=== PATIENT | male | born 1960 | race Caucasian/White ===

== ENCOUNTER → 2017-12-31 | Outpatient (REF) | payer OTHER ==
[2017-12-31 13:45] LABS: BASO % 0.4 % (0.0-1.0); EOS # 0.2 10^3/uL (0.0-0.50); EOS % 3.4 % (0.0-3.0); HEMATOCRIT 43.8 % (42.0-52.0); HEMOGLOBIN 14.5 g/dl (13.5-17.5); IMMATURE GRANULOCYTE % 0.7 % (0-3.0); LYMPH % 29.5 % (24.0-44.0); MEAN CORPUSCULAR HEMOGLOBIN 29.2 pg (27.0-33.0); MEAN CORPUSCULAR HGB CONC 33.1 g/dl (32.0-36.5); MEAN CORPUSCULAR VOLUME 88.3 fl (80.0-96.0); MONO # 0.5 10^3/uL (0.0-0.8); MONO % 6.6 % (0.0-5.0); NEUTROPHILS % 59.4 % (36.0-66.0); PLATELET COUNT, AUTOMATED 188 10^3/uL (150-450); RED BLOOD COUNT 4.96 10^6/uL (4.30-6.10); RED CELL DISTRIBUTION WIDTH 12.7 % (11.5-14.5); WHITE BLOOD COUNT 6.8 10^3/uL (4.0-10.0)
[2017-12-31 14:10] LABS: ALBUMIN 4.1 GM/DL (3.2-5.2); ALBUMIN/GLOBULIN RATIO 1.05 (1.00-1.93); ALKALINE PHOSPHATASE 112 U/L (45-117); ALT/SGPT 66 U/L (12-78); ANION GAP 10 MEQ/L (8-16); AST/SGOT 39 U/L (7-37); BILIRUBIN,TOTAL 0.4 MG/DL (0.2-1.0); BLOOD UREA NITROGEN 14 MG/DL (7-18); C REACTIVE PROTEIN QUANTITATIV 1.28 MG/DL (0.00-0.30); CALCIUM LEVEL 9.1 MG/DL (8.5-10.1); CARBON DIOXIDE LEVEL 27 MEQ/L (21-32); CHLORIDE LEVEL 105 MEQ/L (98-107); CHOLESTEROL LEVEL 170 MG/DL (<200); CHOLESTEROL RISK RATIO 7.727 (<5); CPK CREATINE PHOSPHOKINASE 83 U/L (39-308); CREATININE FOR GFR 1.06 MG/DL (0.70-1.30); FREE T4 0.77 NG/DL (0.76-1.46); GLOMERULAR FILTRATION RATE > 60.0 (>56); GLUCOSE, FASTING 89 MG/DL (70-100); HDL CHOLESTEROL 22 MG/DL (>40); NON-HDL-C 148 MG/DL; POTASSIUM SERUM 4.5 MEQ/L (3.5-5.1); PSA SCREENING 1.17 NG/ML (< 4.0); SODIUM LEVEL 142 MEQ/L (136-145); TRIGLYCERIDES LEVEL 480 MG/DL (<150)
[2017-12-31 14:22] LABS: ESTIMATED AVERAGE GLUCOSE 128 MG/DL (60-110); HEMOGLOBIN A1c 6.1 %
== END ==
LOC: M SFHCPLAZ 11:46
DX: I10 Essential (primary) hypertension (principal); E78.00 Pure hypercholesterolemia, unspecified; E66.9 Obesity, unspecified; Z12.5 Encounter for screening for malignant neoplasm of prostate

== ENCOUNTER → 2017-12-31 | Outpatient (CLI) | payer OTHER | LOC: M SMT 12:11 | DX: G89.29 Other chronic pain (principal); M54.5 Low back pain; I10 Essential (primary) hypertension; E78.00 Pure hypercholesterolemia, unspecified; Z12.5 Encounter for screening for malignant neoplasm of prostate; Z12.11 Encounter for screening for malignant neoplasm of colon; R73.01 Impaired fasting glucose; E66.9 Obesity, unspecified; Z79.82 Long term (current) use of aspirin | CPT/HCPCS: 72110; 82550 ==

== ENCOUNTER → 2018-06-03 | Outpatient (CLI) | payer OTHER ==
[2018-06-03 16:55] LABS: ALBUMIN 4.2 GM/DL (3.2-5.2); ALKALINE PHOSPHATASE 109 U/L (45-117); ALT/SGPT 49 U/L (12-78); ANION GAP 8 MEQ/L (8-16); AST/SGOT 23 U/L (7-37); BILIRUBIN,TOTAL 0.4 MG/DL (0.2-1.0); BLOOD UREA NITROGEN 12 MG/DL (7-18); CALCIUM LEVEL 9.3 MG/DL (8.8-10.2); CARBON DIOXIDE LEVEL 26 MEQ/L (21-32); CHLORIDE LEVEL 108 MEQ/L (98-107); CREATININE FOR GFR 1.04 MG/DL (0.70-1.30); GLOMERULAR FILTRATION RATE > 60.0 (>49); GLUCOSE, FASTING 82 MG/DL (70-100); POTASSIUM SERUM 5.2 MEQ/L (3.5-5.1); SODIUM LEVEL 142 MEQ/L (136-145); TOTAL PROTEIN 7.7 GM/DL (6.4-8.2)
[2018-06-03 20:01] LABS: ESTIMATED AVERAGE GLUCOSE 128 MG/DL (60-110); HEMOGLOBIN A1c 6.1 %
== END ==
LOC: M WUC 12:28
DX: R73.01 Impaired fasting glucose (principal); I10 Essential (primary) hypertension
CPT/HCPCS: 80053

== ENCOUNTER → 2018-06-25 | Outpatient (CLI) | payer OTHER | LOC: M RAD 06:34 | DX: M51.27 Other intervertebral disc displacement, lumbosacral region (principal); M54.5 Low back pain | CPT/HCPCS: 72148 ==

== ENCOUNTER → 2018-10-12 | Outpatient (REF) | payer OTHER ==
[2018-10-12 12:06] LABS: BASO % 0.6 % (0.0-1.0); EOS # 0.2 10^3/uL (0.0-0.50); EOS % 2.6 % (0.0-3.0); HEMATOCRIT 44.6 % (42.0-52.0); HEMOGLOBIN 14.3 g/dl (13.5-17.5); LYMPH # 1.6 10^3/uL (1.5-4.5); LYMPH % 26.2 % (24.0-44.0); MEAN CORPUSCULAR HGB CONC 32.1 g/dl (32.0-36.5); MEAN CORPUSCULAR VOLUME 90.5 fl (80.0-96.0); MONO # 0.4 10^3/uL (0.0-0.8); MONO % 6.7 % (0.0-5.0); NEUTROPHILS % 63.6 % (36.0-66.0); PLATELET COUNT, AUTOMATED 201 10^3/uL (150-450); RED BLOOD COUNT 4.93 10^6/uL (4.30-6.10); WHITE BLOOD COUNT 6.3 10^3/uL (4.0-10.0)
[2018-10-12 12:18] LABS: ALBUMIN 3.8 GM/DL (3.2-5.2); ALT/SGPT 43 U/L (12-78); BILIRUBIN,TOTAL 0.7 MG/DL (0.2-1.0); BLOOD UREA NITROGEN 12 MG/DL (7-18); CALCIUM LEVEL 8.7 MG/DL (8.8-10.2); CARBON DIOXIDE LEVEL 29 MEQ/L (21-32); CHLORIDE LEVEL 105 MEQ/L (98-107); CHOLESTEROL LEVEL 157 MG/DL (<200); CHOLESTEROL RISK RATIO 4.757 (<5); CREATININE FOR GFR 1.14 MG/DL (0.70-1.30); GLOMERULAR FILTRATION RATE > 60.0 (>49); GLUCOSE, FASTING 100 MG/DL (70-100); HDL CHOLESTEROL 33 MG/DL (>40); LDL CHOLESTEROL 79 MG/DL (<100); NON-HDL-C 124 MG/DL; POTASSIUM SERUM 4.5 MEQ/L (3.5-5.1); SODIUM LEVEL 139 MEQ/L (136-145); TOTAL PROTEIN 7.5 GM/DL (6.4-8.2); TRIGLYCERIDES LEVEL 225 MG/DL (<150)
[2018-10-12 12:31] LABS: HEMOGLOBIN A1c 6.3 %
== END ==
LOC: M SFHCPLAZ 09:25
PROVIDERS: ATTEND Physician Assistant Medical
DX: R73.01 Impaired fasting glucose (principal); I10 Essential (primary) hypertension; E87.5 Hyperkalemia; Z13.220 Encounter for screening for lipoid disorders; Z23 Encounter for immunization
CPT/HCPCS: 36415; 80053; 80061; 83036; 85025; 90682; G0008; G0463

== ENCOUNTER → 2018-12-08 | Outpatient (CLI) | payer OTHER ==
--- NOTE | 2018-12-14 23:52 | ECWPNPC ---
PATIENT NAME: CHIKIS ZIMMER : 1960 GENDER: MALE VISIT DATE: 12/08/2018 DISCHARGE DATE: 12/08/18 1421 VISIT LOCKED DATE TIME: PHYSICIAN: MATEUS KLEIN RESOURCE: MATEUS KLEIN REASON FOR APPOINTMENT 1. BACK PAIN HISTORY OF PRESENT ILLNESS PAIN SCREENIN58 Y/O MALE REFERRED BY [facility],PRIMARY CARE FOR EVALUATION OF CHRONIC LOW BACK PAIN AND GENERALIZED BODY PAIN.STATES HE WAS INJURED IN A FALL INJURY IN 1979 WHILE IN THE [employer].FELL OFF LADDER 10FT ABOUT 10 YEARS AGO.PAIN HAS PROGRESSIVELY GOTTEN WORSE OVER THE PAST 5 YEARS.PAIN IS AGGREVATED BY PROLONGED SITTING OR WALKING.PAIN MEDICATION IS ONLY MARGINALLY EFFECTIVE.RATING PAIN VAS 3-6/10.DESCRIBES PAIN CONSTANT ,ACHING AND SORE.DENIES BOWEL OR BLADDER INCONTINENCE.NO RECENT FEVER,ILLNESS OR SUDDEN WEIGHT LOSS. PATIENT HAS A COMPLAINT OF ACUTE OR CHRONIC PAIN :YES FALL RISK SCREENING: SCREENING :NO FALLS REPORTED IN THE LAST YEAR CURRENT MEDICATIONS TAKING FOSINOPRIL SODIUM 10 MG TABLET 1 TABLET ORALLY ONCE A DAY TAKING METFORMIN HCL 500 MG TABLET 1 TABLET WITH MEALS ORALLY TWICE A DAY TAKING ATORVASTATIN CALCIUM 40 MG TABLET 1 TABLET ORALLY ONCE A DAY TAKING ACETAMINOPHEN ER 650 MG TABLET EXTENDED RELEASE 2 TABLETS NEEDED ORALLY EVERY 8 HRS TAKING GABAPENTIN 100 MG CAPSULE 2 CAPSULE ORALLY THREE TIMES A DAY TAKING FISH OIL 1200 MG CAPSULE 1 CAPSULE ORALLY ONCE A DAY DISCONTINUED ASPIRIN 81 81 MG TABLET CHEWABLE 1 TABLET ORALLY ONCE A DAY DISCONTINUED BACLOFEN 10 MG TABLET 2 TABLET WITH FOOD OR MILK ORALLY THREE TIMES A DAY DISCONTINUED TRIAMCINOLONE ACETONIDE 55 MCG/ACT AEROSOL 1 SPRAY IN EACH NOSTRIL NASALLY ONCE A DAY MEDICATION LIST REVIEWED AND RECONCILED WITH THE PATIENT PAST MEDICAL HISTORY HTN HYPERLIPIDEMIA IMPAIRED FASTING GLUCOSE DEGENERATIVE DISC DISEASE ALLERGIES MUSHROOMS : LETHARGIC, FAINTS - SIDE EFFECTS LEMON SCENTED RAID SURGICAL HISTORY RIGHT ARM 2008 RIGHT FOOT/RIGHT HEEL 2007 HERNIA REPAIR 1994 COLONOSCOPY NEG. 2013 DENTAL EXTRACTIONS ANGIOGRAM HEART 1997 FAMILY HISTORY FATHER: , DIAGNOSED WITH HYPERTENSION, HEART DISEASE MOTHER: ALIVE, HYPERTENSION SIBLINGS: ALIVE 3 BROTHER(S) , 1 SISTER(S) . 2 BROTHER HAS HEART ATTACK\\\/STROKE\\NNO CHILDREN. SOCIAL HISTORY GENERAL: TOBACCO USE ARE YOU A:FORMER SMOKER HOW LONG HAS IT BEEN SINCE YOU LAST SMOKED?1-5 YEARS LATEX QUESTIONNAIRE LATEX ALLERGY : HAVE YOU EVER DEVELOPED ANY TYPE OF REACTION AFTER HANDLING LATEX PRODUCTS SUCH RUBBER GLOVES, CONDOMS, DIAPHRAGMS, BALLOONS, SOCKS, OR UNDERWEAR?NO LATEX ALLERGY : HAVE YOU EVER DEVELOPED ANY TYPE OF REACTION DURING OR AFTER DENTAL APPOINTMENT, VAGINAL/RECTAL EXAMINATION, SURGICAL PROCEDURE, OR ANY OTHER EXPOSURE?NO LATEX RISK : HAVE YOU EVER HAD ANY DIFFICULTY BREATHING OR HIVES AFTER EATING OR HANDLING ANY FRUITS, OR VEGETABLES; SUCH KIWI, BANANAS, STONE FRUITS, OR CHESTNUTSNO LATEX RISK : DO YOU HAVE A PREVIOUS PERSONAL HISTORY OF MORE THAN NINE SURGERIES, SPINA BIFIDA, OR REPEATED CATHERTIZATIONS? NO LATEX RISK : ARE YOU FREQUENTLY EXPOSED TO LATEX PRODUCTS IN YOUR OCCUPATION?NO DATE ASKED : 12/08/2018 ALCOHOL SCREENING DID YOU HAVE A DRINK CONTAINING ALCOHOL IN THE PAST YEAR?NO POINTS0 INTERPRETATIONNEGATIVE RECREATIONAL DRUG USE DRUG USE?YES PT USES MARIJUANA ABOUT 1-2 TIMES WEEKLY CAFFEINE CAFFEINE USE?YES COFFEE AND SODA SEXUAL HX HAD SEX IN THE LAST 12 MONTHS (VAGINAL, ORAL, OR ANAL)?YES WITHWOMEN ONLY USE PROTECTION?NO PREVENTION STRATEGIES DISCUSSED:OTHER HAVE YOU EVER HAD AN STD?NO HIV / HEP-C SCREENING HIV TEST OFFERED TO PATIENT:YES DATE OFFERED:12/31/2017 TEST ACCEPTED:NO REASON:PATIENT DECLINED BROCHURE PROVIDED TO PATIENTYES HEP-C TEST OFFERED TO PATIENT:YES DATE OFFERED:12/31/2017 TEST ACCEPTED:NO REASON:PATIENT DECLINED YAZIDI YAZIDI NO SPIRITISM BELIEFS THAT WOULD IMPACT HEALTH CARE. LANGUAGE LANGUAGES SPOKEN:SWEDISH EDUCATION LEVEL OF EDUCATION:FINISHED HIGH SCHOOL GED 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 VISION IMPAIRED?YES :CORRECTIVE LENSES READING GLASSES COGNITIVELY IMPAIRED?NO READINESS TO LEARN?YES LEARNING PREFERENCES?YES :HANDOUTS LEARNING CAPABILITIES PRESENT?YES EMOTIONAL BARRIERS?NO SPECIAL DEVICES?NO OPERATIONS PROFESSIONAL NEEDED?NO OCCUPATION: DISABLED . MARITAL STATUS: . PAIN CLINIC PFS, CLERGY, PUBLIC HEALTH REFERRALS HAS THE PATIENT BEEN EDUCATED REGARDING HIS/HER PLAN OF CARE?YES HAS THE PATIENT BEEN EDUCATED REGARDING PAIN, THE RISK FOR PAIN, THE IMPORTANCE OF EFFECTIVE PAIN MANAGEMENT, AND THE PAIN ASSESSMENT PROCESS?YES ADVANCE DIRECTIVE ADVANCE DIRECTIVE DISCUSSED WITH PATIENT:YES PT STATES HCP IS GÓMEZ ZIMMER, REVIEWED WITH PT 12/08/18 1315 BV. HOSPITALIZATION/MAJOR DIAGNOSTIC PROCEDURE SURGERY RELATED 2007 REVIEW OF SYSTEMS REVIEWED BY: PROVIDER: MATEUS HALE . CONSTITUTIONAL: ANY CHANGE IN YOUR MEDICAL CONDITION? NO . CHILLS NO . FEVER NO . INFECTION: DO YOU HAVE NEW INFECTIONS? NO . DO YOU HAVE HISTORY OF MRSA? NO . MUSCULOSKELETAL: ANY NEW PATTERNS OF PAIN OR NUMBNESS? NO . SYTEMIC LUPUS NO . GASTROENTEROLOGY: ANY NEW CHANGE IN BOWEL CONTROL? NO . BARRETTS ESOPHAGUS NO . CIRRHOSIS NO . HEPATITIS NO . LIVER FAILURE NO . ACID REFLUX NO . UNEXPLAINED WEIGHT LOSS NO . GENITOURINARY: ANY NEW CHANGE IN BLADDER CONTROL? NO . IS THERE A CHANCE YOU COULD BE ? NO . HEMATOLOGY/LYMPH: DO YOU TAKE ANY BLOOD THINNERS? (FOR EXAMPLE- COUMADIN, PLAVIX, AGGRENOX, PLATEL, PRADAXA, OR XARELTO) NO . WHEN WAS YOUR LAST DOSE? DATE: TIME: . LOW PLATELET COUNT NO . SICKLE CELL DISEASE NO . VON WILLIEBRANDS NO . FACTOR V LEIDEN NO . THALLASEMIA NO . ANEMIA NO . EASY BRUISING NO . NEUROLOGY: HAVE YOU FALLEN IN THE PAST 12 MONTHS? NO . ANY NEW EXTREMITY NUMBNESS OR WEAKNESS? NO . HEAD INJURY NO . DEMENTIA NO . CEREBRAL PALSY NO . MULTIPLE SCLEROSIS NO . DIZZINESS NO, INTERMITTENTLASTING FOR MINUTES, , LIGHTHEADED SENSATION . HEADACHE NO . STROKES NO . VERTIGO NO . CARDIOLOGY: DO YOU HAVE A PACEMAKER OR DEFIBRILLATOR? NO . ANGINA NO . HEART ATTACK NO . HEART SURGERY NO . CONGESTIVE HEART FAILURE/FLUID OVERLOAD NO . CHEST PAIN STATES HE OCCASSIONALY GETS MIDSTERNAL DULL CHEST PAIN EVERY FEW MONTHS THAT LASTS FOR A DAY OR TWO . HIGH BLOOD PRESSURE NO . IRREGULAR HEART BEAT NO . RESPIRATORY: HAVE YOU BEEN SICK IN THE PAST WEEK? NO . FEVER NO . FLU LIKE SYMPTOMS? NO . CPAP NO . BYPAP NO . ASTHMA NO . EMPHYSEMA NO . CHRONIC LUNG DISEASES NO . SHORTNESS OF BREATH ON EXERTION NO . COUGH NO . SNORING YES . INTEGUMENTARY: DO YOU HAVE ANY RASHES OR OPEN SORES? NO . ALLERGIC/IMMUNO: ARE YOU ALLERGIC TO IV DYE? NO . ANY NEW ALLERGIES? NO . PSYCHIATRIC: DO YOU HAVE THOUGHTS OF HURTING YOURSELF OR SOMEONE ELSE? NO . ARE YOU ABUSED, NEGLECTED, OR IN AN UNSAFE ENVIRONMENT? NO . ENDOCRINOLOGY: ARE YOU DIABETIC? YES, ON MEDICATION . THYROID DISORDER NO . OTHER: DO YOU NEED ANY PRESCRIPTIONS? NO . IF YES, PLEASE LIST: ____ . ANY NEW PROBLEMS WITH YOUR MEDICATIONS? NO . WHEN DID YOU LAST EAT? ____ . WHEN DID YOU LAST DRINK? ____ . WHAT DID YOU LAST DRINK? ____ . NAME OF PERSON DRIVING YOU HOME? ____ . DO YOU HAVE ANY OTHER QUESTIONS OR CONCERNS NO . VITAL SIGNS WT 245.2 LBS, HT 71 IN, BMI 34.19 INDEX, BP 160/90 MM HG, HR 80 /MIN, RR 18 /MIN, TEMP 97.2 F, OXYGEN SAT % 94%, SAFE IN ENV? (Y/N) YES, REVIEWED BY: SIRENA. EXAMINATION GENERAL EXAMINATION: GENERAL APPEARANCE: AWAKE,ALERT ,PLEAASANT . PSYCH AFFECT NORMAL . NECK: TRACHEA MIDLINE. NO CERVICAL OR SUPRACLAVICULAR LYMPHADENOPATHY NOTED. LUNGS: LUNG FULTON ARE CLEAR TO AUSCULTATION BILATERALLY. GOOD MOVEMENT OF AIR . HEART: S1, S2 IN A REGULAR RATE AND RHYTHM. NO SIGNIFICANT MURMURS, RUBS OR GALLOPS NOTED . ABDOMEN: SOFT/NONTENDER/PROTUBERANT/OBESE. MUSCULOSKELETAL:MUSCLE STRENGTH TESTING 5/5 BILATERAL UPPER/LOWER EXTREMITIES. LUMBAR SACRAL SPINEPALPATION: POSITIVE FOR PAIN OVER L/S SPINE. SPECIFIC POINT TENDERNESS OVER BILAT. SIJ L>R.POSITIVE ART TESTING BILAT. LOWER EXTREMITIES. CERVICALPOSITIVE FOR PAIN WITH PALPATION OF CERVICAL SPINE. POSITIVE FOR PAIN WITH PALPATION OF CERVICAL PARASPINALS. NEGATIVE FOR PAIN WITH PALPATION OF TRAPEZIUS BILAT. SKIN: NO RASH OR SKIN LESIONS. NEUROLOGIC EXAM: CN'S NORMAL TESTED , DTRS 1-2+ IN ALL 4 EXTREMITIES. DIAGNOSTIC TESTS REVIEWEDMRI L/S SPINE-06/25/18 . ASSESSMENTS SACROILIITIS - M46.1 (PRIMARY) TREATMENT SACROILIITIS NOTES: BILAT. SIJ. PROCEDURE CODES FA211 ESTABILISHED PATIENT [facility]AC[facility] CHARGE DISPOSITION & COMMUNICATION FOLLOW UP POST (REASON: BILAT. SIJ) ELECTRONICALLY SIGNED BY ALEXIA CARRANZA ON 12/14/2018 AT 04:43 PM EDT DISCLAIMER : THIS IS A VISIT SUMMARY EXTRACTED FROM THE [employer] CHART. IT IS NOT A COPY OF THE [employer] PROGRESS NOTE. DEEPTHID
== END ==
LOC: M PAIN 13:00
PROVIDERS: ATTEND Nurse Practitioner Family
DX: M46.1 Sacroiliitis, not elsewhere classified (principal); G89.29 Other chronic pain; I10 Essential (primary) hypertension; E78.5 Hyperlipidemia, unspecified; R73.01 Impaired fasting glucose; Z87.891 Personal history of nicotine dependence; Z91.018 Allergy to other foods; Z91.048 Other nonmedicinal substance allergy status; Z79.84 Long term (current) use of oral hypoglycemic drugs; Z79.899 Other long term (current) drug therapy

== ENCOUNTER → 2019-01-07 | Outpatient (CLI) | payer OTHER ==
--- NOTE | 2019-01-23 23:15 | ECWPNPC ---
PATIENT NAME: CHIKIS ZIMMER : 1960 GENDER: MALE VISIT DATE: 01/07/2019 DISCHARGE DATE: 01/07/19 1352 VISIT LOCKED DATE TIME: PHYSICIAN: HELEN CASSIDY MD RESOURCE: HELEN CASSIDY MD REASON FOR APPOINTMENT 1. PER DR Pepe/LBP HISTORY OF PRESENT ILLNESS HISTORY OF PRESENT ILLNESS: PAIN THE PATIENT DESCRIBES THE PAIN... 58 YEAR OLD MALE PATIENT WITH A HISTORY OF CHRONIC LOW BACK PAIN. THE PATIENT DESCRIBES THE PAIN STABBING, SHOOTING, SHARP, AND CONTINUOUS WITH A PAIN SCORE OF 4-8/10 DEPENDING ON PHYSICAL ACTIVITY. THE PATIENT SAYS THE PAIN IS ALL AROUND IN HIS LOWER BACK BUT HE EXPERIENCES MORE PAIN ON HIS LEFT SIDE. THE PATIENT SAYS HE HAS BEEN SUFFERING FROM THIS PAIN FOR MANY YEARS. PATIENT DENIES UNEXPLAINABLE WEIGHT LOSS, FEVER, CHILLS, NEW CHANGES ON HIS URINARY OR BOWEL CONTROL. FALL RISK SCREENING: SCREENING :NO FALLS REPORTED IN THE LAST YEAR CURRENT MEDICATIONS TAKING FOSINOPRIL SODIUM 10 MG TABLET 1 TABLET ORALLY ONCE A DAY TAKING METFORMIN HCL 500 MG TABLET 1 TABLET WITH MEALS ORALLY TWICE A DAY TAKING ATORVASTATIN CALCIUM 40 MG TABLET 1 TABLET ORALLY ONCE A DAY TAKING ACETAMINOPHEN ER 650 MG TABLET EXTENDED RELEASE 2 TABLETS NEEDED ORALLY EVERY 8 HRS TAKING GABAPENTIN 100 MG CAPSULE 2 CAPSULE ORALLY THREE TIMES A DAY TAKING FISH OIL 1200 MG CAPSULE 1 CAPSULE ORALLY ONCE A DAY MEDICATION LIST REVIEWED AND RECONCILED WITH THE PATIENT PAST MEDICAL HISTORY HTN HYPERLIPIDEMIA IMPAIRED FASTING GLUCOSE DEGENERATIVE DISC DISEASE ALLERGIES MUSHROOMS : LETHARGIC, FAINTS - SIDE EFFECTS LEMON SCENTED RAID SURGICAL HISTORY RIGHT ARM 2008 RIGHT FOOT/RIGHT HEEL 2007 HERNIA REPAIR 1994 COLONOSCOPY NEG. 2013 DENTAL EXTRACTIONS ANGIOGRAM HEART 1997 FAMILY HISTORY FATHER: , DIAGNOSED WITH HYPERTENSION, HEART DISEASE MOTHER: ALIVE, HYPERTENSION SIBLINGS: ALIVE 3 BROTHER(S) , 1 SISTER(S) . 2 BROTHER HAS HEART ATTACK\\\/STROKE\\NNO CHILDREN. SOCIAL HISTORY GENERAL: TOBACCO USE ARE YOU A:FORMER SMOKER HOW LONG HAS IT BEEN SINCE YOU LAST SMOKED?1-5 YEARS HIV / HEP-C SCREENING HIV TEST OFFERED TO PATIENT:YES DATE OFFERED:12/31/2017 TEST ACCEPTED:NO REASON:PATIENT DECLINED BROCHURE PROVIDED TO PATIENTYES HEP-C TEST OFFERED TO PATIENT:YES DATE OFFERED:12/31/2017 TEST ACCEPTED:NO REASON:PATIENT DECLINED EDUCATION LEVEL OF EDUCATION:FINISHED HIGH SCHOOL GED LANGUAGE LANGUAGES SPOKEN:HEBREW RECREATIONAL DRUG USE DRUG USE?YES PT USES MARIJUANA ABOUT 1-2 TIMES WEEKLY 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 VISION IMPAIRED?YES :CORRECTIVE LENSES READING GLASSES COGNITIVELY IMPAIRED?NO READINESS TO LEARN?YES LEARNING PREFERENCES?YES :HANDOUTS LEARNING CAPABILITIES PRESENT?YES EMOTIONAL BARRIERS?NO SPECIAL DEVICES?NO INSOLE BEVELER NEEDED?NO PAIN CLINIC PFS, CLERGY, PUBLIC HEALTH REFERRALS HAS THE PATIENT BEEN EDUCATED REGARDING HIS/HER PLAN OF CARE?YES HAS THE PATIENT BEEN EDUCATED REGARDING PAIN, THE RISK FOR PAIN, THE IMPORTANCE OF EFFECTIVE PAIN MANAGEMENT, AND THE PAIN ASSESSMENT PROCESS?YES LATEX QUESTIONNAIRE LATEX ALLERGY : HAVE YOU EVER DEVELOPED ANY TYPE OF REACTION AFTER HANDLING LATEX PRODUCTS SUCH RUBBER GLOVES, CONDOMS, DIAPHRAGMS, BALLOONS, SOCKS, OR UNDERWEAR?NO LATEX ALLERGY : HAVE YOU EVER DEVELOPED ANY TYPE OF REACTION DURING OR AFTER DENTAL APPOINTMENT, VAGINAL/RECTAL EXAMINATION, SURGICAL PROCEDURE, OR ANY OTHER EXPOSURE?NO LATEX RISK : HAVE YOU EVER HAD ANY DIFFICULTY BREATHING OR HIVES AFTER EATING OR HANDLING ANY FRUITS, OR VEGETABLES; SUCH KIWI, BANANAS, STONE FRUITS, OR CHESTNUTSNO LATEX RISK : DO YOU HAVE A PREVIOUS PERSONAL HISTORY OF MORE THAN NINE SURGERIES, SPINA BIFIDA, OR REPEATED CATHERTIZATIONS? NO LATEX RISK : ARE YOU FREQUENTLY EXPOSED TO LATEX PRODUCTS IN YOUR OCCUPATION?NO DATE ASKED : 12/08/2018 CAFFEINE CAFFEINE USE?YES COFFEE AND SODA ADVANCE DIRECTIVE ADVANCE DIRECTIVE DISCUSSED WITH PATIENT:YES PT STATES HCP IS GÓMEZ ZIMMER, RESTORATIONISM RESTORATIONISM NO MANDAEN BELIEFS THAT WOULD IMPACT HEALTH CARE. MARITAL STATUS: . ALCOHOL SCREENING DID YOU HAVE A DRINK CONTAINING ALCOHOL IN THE PAST YEAR?NO POINTS0 INTERPRETATIONNEGATIVE OCCUPATION: DISABLED. SEXUAL HX HAD SEX IN THE LAST 12 MONTHS (VAGINAL, ORAL, OR ANAL)?YES WITHWOMEN ONLY USE PROTECTION?NO PREVENTION STRATEGIES DISCUSSED:OTHER HAVE YOU EVER HAD AN STD?NO REVIEWED WITH PT 12/08/18 1315 BV. HOSPITALIZATION/MAJOR DIAGNOSTIC PROCEDURE SURGERY RELATED 2007 REVIEW OF SYSTEMS REVIEWED BY: PROVIDER: HELEN CASSIDY MD . CONSTITUTIONAL: ANY CHANGE IN YOUR MEDICAL CONDITION? NO . CHILLS NO . FEVER NO . INFECTION: DO YOU HAVE NEW INFECTIONS? NO . DO YOU HAVE HISTORY OF MRSA? NO . MUSCULOSKELETAL: ANY NEW PATTERNS OF PAIN OR NUMBNESS? NO . GASTROENTEROLOGY: ANY NEW CHANGE IN BOWEL CONTROL? NO . GENITOURINARY: ANY NEW CHANGE IN BLADDER CONTROL? NO . IS THERE A CHANCE YOU COULD BE ? NO . HEMATOLOGY/LYMPH: DO YOU TAKE ANY BLOOD THINNERS? (FOR EXAMPLE- COUMADIN, PLAVIX, AGGRENOX, PLATEL, PRADAXA, OR XARELTO) NO . WHEN WAS YOUR LAST DOSE? DATE: TIME: . NEUROLOGY: HAVE YOU FALLEN IN THE PAST 12 MONTHS? NO . ANY NEW EXTREMITY NUMBNESS OR WEAKNESS? NO . CARDIOLOGY: DO YOU HAVE A PACEMAKER OR DEFIBRILLATOR? NO . RESPIRATORY: HAVE YOU BEEN SICK IN THE PAST WEEK? NO . FEVER NO . FLU LIKE SYMPTOMS? NO . COUGH NO . INTEGUMENTARY: DO YOU HAVE ANY RASHES OR OPEN SORES? NO . ALLERGIC/IMMUNO: ARE YOU ALLERGIC TO IV DYE? NO . ANY NEW ALLERGIES? NO . PSYCHIATRIC: DO YOU HAVE THOUGHTS OF HURTING YOURSELF OR SOMEONE ELSE? NO . ARE YOU ABUSED, NEGLECTED, OR IN AN UNSAFE ENVIRONMENT? NO . ENDOCRINOLOGY: ARE YOU DIABETIC? NO . OTHER: DO YOU NEED ANY PRESCRIPTIONS? NO . IF YES, PLEASE LIST: ____ . ANY NEW PROBLEMS WITH YOUR MEDICATIONS? NO . WHEN DID YOU LAST EAT? ____ . WHEN DID YOU LAST DRINK? ____ . WHAT DID YOU LAST DRINK? ____ . NAME OF PERSON DRIVING YOU HOME? ____ . DO YOU HAVE ANY OTHER QUESTIONS OR CONCERNS NO . EXAMINATION GENERAL EXAMINATION: PATIENT IS ALERT O X 3 AND COOPERATIVE. PRESENCE OF BANDS OF TISSUE AND TRIGGER POINTS WITH RESTRICTION OF MOVEMENT OF THE LOW BACK. TENDERNESS OVER THE LUMBAR FACET JOINTS. MRI OF THE LUMBAR SPINE DONE ON 06/25/2018 SHOWS FACET ARTHROPATHY CHANGES. 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 ZIMMER'S PAIN MANAGEMENT CASE. DUE TO THE TRIGGER POINTS, BANDS OF TISSUE, AND RESTRICTION OF MOVEMENT, I WOULD LIKE TO MOVE FORWARD WITH A TRIGGER POINT INJECTION AT THIS TIME. WE DISCUSSED THE BENEFITS, RISKS, AND ALTERNATIVES OF THE INJECTION AND THE PATIENT WOULD LIKE TO PROCEED. THE PATIENT WILL FOLLOW UP IN SEVERAL WEEKS AFTER THE INJECTION. INSTRUCTIONS WERE GIVEN, QUESTIONS WERE ANSWERED, PATIENT REPORTS UNDERSTANDING AND AGREES WITH THE PLAN. I, LISBETH CLAUDIO, DOCUMENTED THE ABOVE INFORMATION ACTING A SCRIBE FOR DR. CASSIDY. I HAVE REVIEWED THE ABOVE DOCUMENT, WRITTEN BY LISBETH SMITHIBBella AND I VERIFY THAT IT IS ACCURATE. . OTHERS NOTES: TRIGGER POINT INJECTION: YOUR EXPERIENCE MATERIAL WAS PRINTED,TRIGGER POINT INJECTION MATERIAL WAS PRINTED. PREVENTIVE MEDICINE PAIN CLINIC TEACHING: PROCEDURE TEACHING PRINTED AND REVIEWED INFORMATION ON TRIGGER POINT INJECTION PROCEDURE WITH PATIENT. ALSO REVIEWED PRE-PROCEDURE INSTRUCTIONS. PATIENT VERBALIZED AN UNDERSTANDING. NATHALY HDEZ 01/07/2019 1:53:20 PM > . PROCEDURE CODES FA211 ESTABILISHED PATIENT [facility] FACILITY CHARGE [id number] CURRENT MEDS W/DOSAGES DOCUMENTED G8730 PAIN ASSESS POS TOOL F/U PLAN DOC DISPOSITION & COMMUNICATION FOLLOW UP 3 WEEKS ELECTRONICALLY SIGNED BY HELEN CASSIDY MD, MD ON 01/23/2019 AT 04:51 PM EDT DISCLAIMER : THIS IS A VISIT SUMMARY EXTRACTED FROM THE [employer] CHART. IT IS NOT A COPY OF THE [employer] PROGRESS NOTE. MAMI
== END ==
LOC: M PAIN 11:00
PROVIDERS: ATTEND Anesthesiology
DX: M79.18 Myalgia, other site (principal); M54.5 Low back pain; G89.29 Other chronic pain; M47.816 Spondylosis without myelopathy or radiculopathy, lumbar region; M47.817 Spondylosis without myelopathy or radiculopathy, lumbosacral region; I10 Essential (primary) hypertension; E78.5 Hyperlipidemia, unspecified; R73.01 Impaired fasting glucose; Z87.891 Personal history of nicotine dependence; Z91.018 Allergy to other foods; Z91.048 Other nonmedicinal substance allergy status; Z79.84 Long term (current) use of oral hypoglycemic drugs; Z79.899 Other long term (current) drug therapy

== ENCOUNTER → 2019-01-07 | Outpatient (CLI) | payer OTHER | LOC: M PAIN 11:00 | PROVIDERS: ATTEND Anesthesiology | DX: M46.1 Sacroiliitis, not elsewhere classified (principal); Z53.29 Procedure and treatment not carried out because of patient's decision for other reasons ==

== ENCOUNTER → 2019-01-11 | Outpatient (REF) | payer OTHER ==
[2019-01-11 12:16] LABS: BASO % 0.5 % (0.0-1.0); EOS # 0.2 10^3/uL (0.0-0.50); EOS % 2.8 % (0.0-3.0); HEMATOCRIT 42.9 % (42.0-52.0); HEMOGLOBIN 13.9 g/dl (13.5-17.5); LYMPH # 1.9 10^3/uL (1.5-4.5); LYMPH % 30.6 % (24.0-44.0); MEAN CORPUSCULAR HEMOGLOBIN 28.7 pg (27.0-33.0); MEAN CORPUSCULAR HGB CONC 32.4 g/dl (32.0-36.5); MEAN CORPUSCULAR VOLUME 88.6 fl (80.0-96.0); MONO # 0.4 10^3/uL (0.0-0.8); NEUTROPHILS # 3.6 10^3/uL (1.8-7.7); NEUTROPHILS % 58.6 % (36.0-66.0); PLATELET COUNT, AUTOMATED 208 10^3/uL (150-450); RED BLOOD COUNT 4.84 10^6/uL (4.30-6.10); WHITE BLOOD COUNT 6.1 10^3/uL (4.0-10.0)
[2019-01-11 12:44] LABS: HEMOGLOBIN A1c 6.5 %
[2019-01-11 12:54] LABS: ALBUMIN 3.6 GM/DL (3.2-5.2); ALT/SGPT 58 U/L (12-78); BILIRUBIN,TOTAL 0.3 MG/DL (0.2-1.0); BLOOD UREA NITROGEN 10 MG/DL (7-18); CALCIUM LEVEL 8.8 MG/DL (8.8-10.2); CARBON DIOXIDE LEVEL 27 MEQ/L (21-32); CHLORIDE LEVEL 106 MEQ/L (98-107); CREATININE FOR GFR 1.09 MG/DL (0.70-1.30); GLOMERULAR FILTRATION RATE > 60.0 (>49); GLUCOSE, FASTING 105 MG/DL (70-100); POTASSIUM SERUM 4.4 MEQ/L (3.5-5.1); SODIUM LEVEL 141 MEQ/L (136-145); TOTAL PROTEIN 7.5 GM/DL (6.4-8.2)
== END ==
LOC: M SFHCPLAZ 10:16
PROVIDERS: ATTEND Physician Assistant Medical
DX: R73.01 Impaired fasting glucose (principal); E87.5 Hyperkalemia; I10 Essential (primary) hypertension
CPT/HCPCS: 36415; 80053; 83036; 85025; G0463

== ENCOUNTER → 2019-03-29 | Outpatient (CLI) | payer OTHER ==
--- NOTE | 2019-04-07 01:08 | ECWPNPC ---
PATIENT NAME: CHIKIS ZIMMER : 1960 GENDER: MALE VISIT DATE: 03/29/2019 DISCHARGE DATE: 03/29/19 1525 VISIT LOCKED DATE TIME: PHYSICIAN: HELEN CASSIDY MD RESOURCE: HELEN CASSIDY MD REASON FOR APPOINTMENT 1. BACK PAIN HISTORY OF PRESENT ILLNESS HISTORY OF PRESENT ILLNESS: PAIN THE PATIENT DESCRIBES THE PAIN... 59 YEAR OLD MALE PATIENT WITH A HISTORY OF CHRONIC LOW BACK PAIN THE PATIENT DESCRIBES THE PAIN ACHING AND CONTINUOUS WITH A PAIN SCORE OF 2-7/10 DEPENDING ON PHYSICAL ACTIVITY. THE PATIENT RECEIVED A TRIGGER POINT INJECTION ON 02/04/2019 AND REPORTS DOING WELL. THE PATIENT SAYS THAT HE NOW HAS PAIN IN THE RIGHT THORACIC AREA. PATIENT DENIES UNEXPLAINABLE WEIGHT LOSS, FEVER, CHILLS, NEW CHANGES ON HIS URINARY OR BOWEL CONTROL. FALL RISK SCREENING: SCREENING :NO FALLS REPORTED IN THE LAST YEAR CURRENT MEDICATIONS TAKING ATORVASTATIN CALCIUM 40 MG TABLET 1 TABLET ORALLY ONCE A DAY, NOTES: 02-03 TAKING FISH OIL 1200 MG CAPSULE 1 CAPSULE ORALLY ONCE A DAY, NOTES: 02-04 TAKING METFORMIN HCL 500 MG TABLET 1 TABLET WITH MEALS ORALLY TWICE A DAY, NOTES: 02-04 TAKING FOSINOPRIL SODIUM 10 MG TABLET 1 TABLET ORALLY ONCE A DAY, NOTES: 02-03 TAKING BACLOFEN 10 MG TABLET 2 TABLET WITH FOOD OR MILK ORALLY THREE TIMES A DAY, NOTES: 02-03 TAKING ACETAMINOPHEN ER 650 MG TABLET EXTENDED RELEASE 2 TABLETS NEEDED ORALLY EVERY 8 HRS, NOTES: 02-03 TAKING GABAPENTIN 100 MG CAPSULE 1 CAPSULE ORALLY THREE TIMES A DAY, NOTES: 02-03 NOT-TAKING TRIAMCINOLONE ACETONIDE 55 MCG/ACT AEROSOL 1 SPRAY IN EACH NOSTRIL NASALLY ONCE A DAY MEDICATION LIST REVIEWED AND RECONCILED WITH THE PATIENT PAST MEDICAL HISTORY HTN HYPERLIPIDEMIA IMPAIRED FASTING GLUCOSE DEGENERATIVE DISC DISEASE ALLERGIES MUSHROOMS : LETHARGIC, FAINTS - SIDE EFFECTS LEMON SCENTED RAID SURGICAL HISTORY RIGHT ARM 2007 RIGHT FOOT/RIGHT HEEL 2007 HERNIA REPAIR 1994 COLONOSCOPY NEG. 2013 DENTAL EXTRACTIONS ANGIOGRAM HEART 1997 FAMILY HISTORY FATHER: , DIAGNOSED WITH HYPERTENSION, HEART DISEASE MOTHER: ALIVE, HYPERTENSION SIBLINGS: ALIVE 3 BROTHER(S) , 1 SISTER(S) . 2 BROTHER HAS HEART ATTACK\\\/STROKE\\NNO CHILDREN. SOCIAL HISTORY GENERAL: TOBACCO USE ARE YOU A:FORMER SMOKER HOW LONG HAS IT BEEN SINCE YOU LAST SMOKED?1-5 YEARS HIV / HEP-C SCREENING HIV TEST OFFERED TO PATIENT:YES DATE OFFERED:12/31/2017 TEST ACCEPTED:NO REASON:PATIENT DECLINED BROCHURE PROVIDED TO PATIENTYES HEP-C TEST OFFERED TO PATIENT:YES DATE OFFERED:12/31/2017 TEST ACCEPTED:NO REASON:PATIENT DECLINED EDUCATION LEVEL OF EDUCATION:FINISHED HIGH SCHOOL GED LANGUAGE LANGUAGES SPOKEN:YORUBA RECREATIONAL DRUG USE DRUG USE?YES PT USES MARIJUANA ABOUT 1-2 TIMES WEEKLY 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 VISION IMPAIRED?YES :CORRECTIVE LENSES READING GLASSES COGNITIVELY IMPAIRED?NO READINESS TO LEARN?YES LEARNING PREFERENCES?YES :HANDOUTS LEARNING CAPABILITIES PRESENT?YES EMOTIONAL BARRIERS?NO SPECIAL DEVICES?NO BALL POINT SPLITTER NEEDED?NO PAIN CLINIC PFS, CLERGY, PUBLIC HEALTH REFERRALS HAS THE PATIENT BEEN EDUCATED REGARDING HIS/HER PLAN OF CARE?YES HAS THE PATIENT BEEN EDUCATED REGARDING PAIN, THE RISK FOR PAIN, THE IMPORTANCE OF EFFECTIVE PAIN MANAGEMENT, AND THE PAIN ASSESSMENT PROCESS?YES LATEX QUESTIONNAIRE LATEX ALLERGY : HAVE YOU EVER DEVELOPED ANY TYPE OF REACTION AFTER HANDLING LATEX PRODUCTS SUCH RUBBER GLOVES, CONDOMS, DIAPHRAGMS, BALLOONS, SOCKS, OR UNDERWEAR?NO LATEX ALLERGY : HAVE YOU EVER DEVELOPED ANY TYPE OF REACTION DURING OR AFTER DENTAL APPOINTMENT, VAGINAL/RECTAL EXAMINATION, SURGICAL PROCEDURE, OR ANY OTHER EXPOSURE?NO LATEX RISK : HAVE YOU EVER HAD ANY DIFFICULTY BREATHING OR HIVES AFTER EATING OR HANDLING ANY FRUITS, OR VEGETABLES; SUCH KIWI, BANANAS, STONE FRUITS, OR CHESTNUTSNO LATEX RISK : DO YOU HAVE A PREVIOUS PERSONAL HISTORY OF MORE THAN NINE SURGERIES, SPINA BIFIDA, OR REPEATED CATHERIZATIONS? NO LATEX RISK : ARE YOU FREQUENTLY EXPOSED TO LATEX PRODUCTS IN YOUR OCCUPATION?NO DATE ASKED : 12/08/2018 CAFFEINE CAFFEINE USE?YES COFFEE AND SODA ADVANCE DIRECTIVE ADVANCE DIRECTIVE DISCUSSED WITH PATIENT:YES PT STATES HCP IS GÓMEZ ZIMMER, MUSLIM MUSLIM NO LATTER-DAY BELIEFS THAT WOULD IMPACT HEALTH CARE. MARITAL STATUS: . ALCOHOL SCREENING DID YOU HAVE A DRINK CONTAINING ALCOHOL IN THE PAST YEAR?NO POINTS0 INTERPRETATIONNEGATIVE OCCUPATION: DISABLED. SEXUAL HX HAD SEX IN THE LAST 12 MONTHS (VAGINAL, ORAL, OR ANAL)?YES WITHWOMEN ONLY USE PROTECTION?NO PREVENTION STRATEGIES DISCUSSED:OTHER HAVE YOU EVER HAD AN STD?NO REVIEWED WITH PT 12/08/18 1315 BVREVIEWED WITH PT 02/04/19 0922 NLJREVIEWED WITH PT 03/29/19 NLJ. HOSPITALIZATION/MAJOR DIAGNOSTIC PROCEDURE SURGERY RELATED 2007 REVIEW OF SYSTEMS REVIEWED BY: PROVIDER: HELEN CASSIDY MD . CONSTITUTIONAL: ANY CHANGE IN YOUR MEDICAL CONDITION? NO . CHILLS NO . FEVER NO . INFECTION: DO YOU HAVE NEW INFECTIONS? NO . DO YOU HAVE HISTORY OF MRSA? NO . MUSCULOSKELETAL: ANY NEW PATTERNS OF PAIN OR NUMBNESS? YES- RIGHT SIDE OF BACK PAIN, AT SHOULDER BLADES AND RIBS HAS STARTED . GASTROENTEROLOGY: ANY NEW CHANGE IN BOWEL CONTROL? NO . GENITOURINARY: ANY NEW CHANGE IN BLADDER CONTROL? NO . IS THERE A CHANCE YOU COULD BE ? NO . HEMATOLOGY/LYMPH: DO YOU TAKE ANY BLOOD THINNERS? (FOR EXAMPLE- COUMADIN, PLAVIX, AGGRENOX, PLATEL, PRADAXA, OR XARELTO) NO . WHEN WAS YOUR LAST DOSE? DATE: TIME: . NEUROLOGY: HAVE YOU FALLEN IN THE PAST 12 MONTHS? NO . ANY NEW EXTREMITY NUMBNESS OR WEAKNESS? NO . CARDIOLOGY: DO YOU HAVE A PACEMAKER OR DEFIBRILLATOR? NO . RESPIRATORY: HAVE YOU BEEN SICK IN THE PAST WEEK? NO . FEVER NO . FLU LIKE SYMPTOMS? NO . COUGH NO . INTEGUMENTARY: DO YOU HAVE ANY RASHES OR OPEN SORES? NO . ALLERGIC/IMMUNO: ARE YOU ALLERGIC TO IV DYE? NO . ANY NEW ALLERGIES? NO . PSYCHIATRIC: DO YOU HAVE THOUGHTS OF HURTING YOURSELF OR SOMEONE ELSE? NO . ARE YOU ABUSED, NEGLECTED, OR IN AN UNSAFE ENVIRONMENT? NO . ENDOCRINOLOGY: ARE YOU DIABETIC? NO . OTHER: DO YOU NEED ANY PRESCRIPTIONS? NO . IF YES, PLEASE LIST: ____ . ANY NEW PROBLEMS WITH YOUR MEDICATIONS? NO . WHEN DID YOU LAST EAT? ____ . WHEN DID YOU LAST DRINK? ____ . WHAT DID YOU LAST DRINK? ____ . NAME OF PERSON DRIVING YOU HOME? ____ . DO YOU HAVE ANY OTHER QUESTIONS OR CONCERNS YES- RIGHT SIDED BACK PAIN AT SHOULDER BLADES AND RIBSSTATES TRIGGER POINTS WORKED WELL IN LOWER BACK, STATES HE FEELS PAIN IS 60-70 % BETTER IN LUMBAR BACK AFTER INJECTIONS, YES- WONDERING ABOUT POSSIBLE INJECTIONS IN RIGHT SIDE OF BACK . VITAL SIGNS WT 225.8 LBS, HT 71 IN, BMI 31.49 INDEX, BP 126/81 MM HG, HR 85 /MIN, RR 18 /MIN, TEMP 97.0 F, OXYGEN SAT % 94%, SAFE IN ENV? (Y/N) YES, NA INITIALS MD 14:45, REVIEWED BY: KATHY. EXAMINATION GENERAL EXAMINATION: PATIENT IS ALERT O X 3 AND COOPERATIVE. TENDERNESS IN THE RIGHT THORACIC AREA. PRESENCE OF TRIGGER POINTS AND BANDS OF TISSUE WITH RESTRICTION OF MOVEMENT OF THE BACK. ASSESSMENTS MYALGIA, OTHER SITE - M79.18 (PRIMARY) PAIN IN THORACIC SPINE - M54.6 OTHER CHRONIC PAIN - G89.29 TREATMENT MYALGIA, OTHER SITE CLINICAL NOTES: WE DISCUSSED SEVERAL ISSUES WITH MR. ZIMMER'S PAIN MANAGEMENT CASE. I WILL ORDER A THORACIC MRI WITH MARKERS TO FIGURE OUT WHERE THE PATIENT'S PAIN MAY BE COMING FROM. THE PATIENT WILL CONSIDER A TRIGGER POINT INJECTION AT THE RIGHT THORACIC AREA, BUT I WOULD LIKE TO WAIT TO BE SURE THE MRI IS CLEAR. THE PATIENT WILL FOLLOW UP WITH A NURSE PRACTITIONER IN A FEW WEEKS TO REVIEW THE MRI. INSTRUCTIONS WERE GIVEN, QUESTIONS WERE ANSWERED, PATIENT REPORTS UNDERSTANDING AND AGREES WITH THE PLAN. I, ANABELLE TRIPATHI, DOCUMENTED THE ABOVE INFORMATION ACTING A SCRIBE FOR DR. CASSIDY. I HAVE REVIEWED THE ABOVE DOCUMENT, WRITTEN BY ANABELLE DURHAM AND I VERIFY THAT IT IS ACCURATE. . PROCEDURE CODES FA211 ESTABILISHED PATIENT [facility] FACILITY CHARGE G8427 CURRENT MEDS W/DOSAGES DOCUMENTED G8730 PAIN ASSESS POS TOOL F/U PLAN DOC DISPOSITION & COMMUNICATION FOLLOW UP 3 WEEKS WITH TAYLOR (REASON: REVIEW THORACIC MRI) ELECTRONICALLY SIGNED BY HELEN CASSIDY MD, MD ON 04/06/2019 AT 02:21 PM EDT DISCLAIMER : THIS IS A VISIT SUMMARY EXTRACTED FROM THE [facility] CHART. IT IS NOT A COPY OF THE [facility] PROGRESS NOTE. MAMI
== END ==
LOC: M PAIN 15:00
PROVIDERS: ATTEND Anesthesiology
DX: M79.18 Myalgia, other site (principal); M54.6 Pain in thoracic spine; G89.29 Other chronic pain; I10 Essential (primary) hypertension; E78.5 Hyperlipidemia, unspecified; R73.01 Impaired fasting glucose; Z87.891 Personal history of nicotine dependence; Z91.018 Allergy to other foods; Z91.09 Other allergy status, other than to drugs and biological substances; Z79.84 Long term (current) use of oral hypoglycemic drugs; Z79.899 Other long term (current) drug therapy

== ENCOUNTER → 2019-04-19 | Outpatient (CLI) | payer OTHER | LOC: M RAD 17:16 | PROVIDERS: ATTEND Anesthesiology | DX: M54.6 Pain in thoracic spine (principal); Z53.9 Procedure and treatment not carried out, unspecified reason ==

== ENCOUNTER → 2019-04-21 | Outpatient (CLI) | payer OTHER ==
--- NOTE | 2019-04-22 09:27 | REP ---
MRI STUDY OF THE RIGHT CHEST WALL: HISTORY: Thoracic spine pain. Right chest wall pain. TECHNIQUE: Axial, coronal, and sagittal imaging planes are utilized. T1- and T2-weighted scans are included with and without fat saturation. MRI FINDINGS: An MR marker is placed in the right posterior chest wall at the area of interest. Cortical and medullary bone signal intensity are normal in the thoracic ribs. There is no evidence of chest wall mass or abnormal fluid collection. No subscapular process is appreciated. Skeletal muscle signal intensity is normal on T1- and T2-weighted scans. No pleural disease is appreciated. IMPRESSION: Negative MRI study of the right posterior chest wall. Electronically Signed by Trell Pappas MD 04/22/2019 09:37 A
== END ==
LOC: M RAD 13:18
PROVIDERS: ATTEND Anesthesiology
DX: M54.6 Pain in thoracic spine (principal)

== ENCOUNTER → 2019-04-27 | Outpatient (CLI) | payer OTHER ==
--- NOTE | 2019-04-28 23:24 | ECWPNPC ---
PATIENT NAME: CHIKIS ZIMMER : 1960 GENDER: MALE VISIT DATE: 04/27/2019 DISCHARGE DATE: 04/27/19 1140 VISIT LOCKED DATE TIME: PHYSICIAN: TAYLOR DAVILA RESOURCE: TAYLOR DAVILA REASON FOR APPOINTMENT 1. REVIEW THORACIC MRI HISTORY OF PRESENT ILLNESS HISTORY OF PRESENT ILLNESS: PAIN THE PATIENT DESCRIBES THE PAIN... 59 YEAR OLD MALE IN TO REVIEW RECENT THORACIC MRI. HE ADMITS THE CYMBALTA AND GABAPENTIN HAVE BEEN HELPFUL IN REDUCING HIS PAIN SYMPTOMS. HE RATES HIS PAIN AT A 2/10 CURRENTLY AND DESCRIBES IT SHOOTING. FALL RISK SCREENING: SCREENING :NO FALLS REPORTED IN THE LAST YEAR CURRENT MEDICATIONS TAKING ATORVASTATIN CALCIUM 40 MG TABLET 1 TABLET ORALLY ONCE A DAY TAKING FISH OIL 1200 MG CAPSULE 1 CAPSULE ORALLY ONCE A DAY TAKING METFORMIN HCL 500 MG TABLET 1 TABLET WITH MEALS ORALLY TWICE A DAY TAKING FOSINOPRIL SODIUM 10 MG TABLET 1 TABLET ORALLY ONCE A DAY TAKING BACLOFEN 10 MG TABLET 2 TABLET WITH FOOD OR MILK ORALLY THREE TIMES A DAY TAKING ACETAMINOPHEN ER 650 MG TABLET EXTENDED RELEASE 2 TABLETS NEEDED ORALLY EVERY 8 HRS TAKING GABAPENTIN 100 MG CAPSULE 1 CAPSULE ORALLY THREE TIMES A DAY NOT-TAKING TRIAMCINOLONE ACETONIDE 55 MCG/ACT AEROSOL 1 SPRAY IN EACH NOSTRIL NASALLY ONCE A DAY MEDICATION LIST REVIEWED AND RECONCILED WITH THE PATIENT PAST MEDICAL HISTORY HTN HYPERLIPIDEMIA IMPAIRED FASTING GLUCOSE DEGENERATIVE DISC DISEASE ALLERGIES MUSHROOMS : LETHARGIC, FAINTS - SIDE EFFECTS LEMON SCENTED RAID SURGICAL HISTORY RIGHT ARM 2007 RIGHT FOOT/RIGHT HEEL 2007 HERNIA REPAIR 1994 COLONOSCOPY NEG. 2013 DENTAL EXTRACTIONS ANGIOGRAM HEART 1997 FAMILY HISTORY FATHER: , DIAGNOSED WITH HYPERTENSION, HEART DISEASE MOTHER: ALIVE, HYPERTENSION SIBLINGS: ALIVE 3 BROTHER(S) , 1 SISTER(S) . 2 BROTHER HAS HEART ATTACK\\\/STROKE\\NNO CHILDREN. SOCIAL HISTORY GENERAL: TOBACCO USE ARE YOU A:FORMER SMOKER HOW LONG HAS IT BEEN SINCE YOU LAST SMOKED?1-5 YEARS HIV / HEP-C SCREENING HIV TEST OFFERED TO PATIENT:YES DATE OFFERED:12/31/2017 TEST ACCEPTED:NO REASON:PATIENT DECLINED BROCHURE PROVIDED TO PATIENTYES HEP-C TEST OFFERED TO PATIENT:YES DATE OFFERED:12/31/2017 TEST ACCEPTED:NO REASON:PATIENT DECLINED EDUCATION LEVEL OF EDUCATION:FINISHED HIGH SCHOOL GED LANGUAGE LANGUAGES SPOKEN:[place] RECREATIONAL DRUG USE DRUG USE?YES PT USES MARIJUANA ABOUT 1-2 TIMES WEEKLY 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 VISION IMPAIRED?YES :CORRECTIVE LENSES READING GLASSES COGNITIVELY IMPAIRED?NO READINESS TO LEARN?YES LEARNING PREFERENCES?YES :HANDOUTS LEARNING CAPABILITIES PRESENT?YES EMOTIONAL BARRIERS?NO SPECIAL DEVICES?NO ROAD CROSSING GUARD NEEDED?NO PAIN CLINIC PFS, CLERGY, PUBLIC HEALTH REFERRALS HAS THE PATIENT BEEN EDUCATED REGARDING HIS/HER PLAN OF CARE?YES HAS THE PATIENT BEEN EDUCATED REGARDING PAIN, THE RISK FOR PAIN, THE IMPORTANCE OF EFFECTIVE PAIN MANAGEMENT, AND THE PAIN ASSESSMENT PROCESS?YES LATEX QUESTIONNAIRE LATEX ALLERGY : HAVE YOU EVER DEVELOPED ANY TYPE OF REACTION AFTER HANDLING LATEX PRODUCTS SUCH RUBBER GLOVES, CONDOMS, DIAPHRAGMS, BALLOONS, SOCKS, OR UNDERWEAR?NO LATEX ALLERGY : HAVE YOU EVER DEVELOPED ANY TYPE OF REACTION DURING OR AFTER DENTAL APPOINTMENT, VAGINAL/RECTAL EXAMINATION, SURGICAL PROCEDURE, OR ANY OTHER EXPOSURE?NO LATEX RISK : HAVE YOU EVER HAD ANY DIFFICULTY BREATHING OR HIVES AFTER EATING OR HANDLING ANY FRUITS, OR VEGETABLES; SUCH KIWI, BANANAS, STONE FRUITS, OR CHESTNUTSNO LATEX RISK : DO YOU HAVE A PREVIOUS PERSONAL HISTORY OF MORE THAN NINE SURGERIES, SPINA BIFIDA, OR REPEATED CATHERIZATIONS? NO LATEX RISK : ARE YOU FREQUENTLY EXPOSED TO LATEX PRODUCTS IN YOUR OCCUPATION?NO DATE ASKED : 12/08/2018 CAFFEINE CAFFEINE USE?YES COFFEE AND SODA ADVANCE DIRECTIVE ADVANCE DIRECTIVE DISCUSSED WITH PATIENT:YES PT STATES HCP IS GÓMEZ ZIMMER, ALEVISM ALEVISM NO CHEONDOISM BELIEFS THAT WOULD IMPACT HEALTH CARE. MARITAL STATUS: . ALCOHOL SCREENING DID YOU HAVE A DRINK CONTAINING ALCOHOL IN THE PAST YEAR?NO POINTS0 INTERPRETATIONNEGATIVE OCCUPATION: DISABLED. SEXUAL HX HAD SEX IN THE LAST 12 MONTHS (VAGINAL, ORAL, OR ANAL)?YES WITHWOMEN ONLY USE PROTECTION?NO PREVENTION STRATEGIES DISCUSSED:OTHER HAVE YOU EVER HAD AN STD?NO REVIEWED WITH PT 12/08/18 1315 BVREVIEWED WITH PT 02/04/19 0922 NLJREVIEWED WITH PT 03/29/19 NLJREVIEWED WITH PT 04/27/19 1104 NLJ. HOSPITALIZATION/MAJOR DIAGNOSTIC PROCEDURE SURGERY RELATED 2007 REVIEW OF SYSTEMS REVIEWED BY: PROVIDER: ABDOULAYE VICENTE . CONSTITUTIONAL: ANY CHANGE IN YOUR MEDICAL CONDITION? NO . CHILLS NO . FEVER NO . INFECTION: DO YOU HAVE NEW INFECTIONS? NO . DO YOU HAVE HISTORY OF MRSA? NO . MUSCULOSKELETAL: ANY NEW PATTERNS OF PAIN OR NUMBNESS? NO . GASTROENTEROLOGY: ANY NEW CHANGE IN BOWEL CONTROL? NO . GENITOURINARY: ANY NEW CHANGE IN BLADDER CONTROL? NO . IS THERE A CHANCE YOU COULD BE ? NO . HEMATOLOGY/LYMPH: DO YOU TAKE ANY BLOOD THINNERS? (FOR EXAMPLE- COUMADIN, PLAVIX, AGGRENOX, PLATEL, PRADAXA, OR XARELTO) NO . WHEN WAS YOUR LAST DOSE? DATE: TIME: . NEUROLOGY: HAVE YOU FALLEN IN THE PAST 12 MONTHS? NO . ANY NEW EXTREMITY NUMBNESS OR WEAKNESS? NO . CARDIOLOGY: DO YOU HAVE A PACEMAKER OR DEFIBRILLATOR? NO . RESPIRATORY: HAVE YOU BEEN SICK IN THE PAST WEEK? NO . FEVER NO . FLU LIKE SYMPTOMS? NO . COUGH NO . INTEGUMENTARY: DO YOU HAVE ANY RASHES OR OPEN SORES? NO . ALLERGIC/IMMUNO: ARE YOU ALLERGIC TO IV DYE? NO . ANY NEW ALLERGIES? NO . PSYCHIATRIC: DO YOU HAVE THOUGHTS OF HURTING YOURSELF OR SOMEONE ELSE? NO . ARE YOU ABUSED, NEGLECTED, OR IN AN UNSAFE ENVIRONMENT? NO . ENDOCRINOLOGY: ARE YOU DIABETIC? NO . OTHER: DO YOU NEED ANY PRESCRIPTIONS? NO . IF YES, PLEASE LIST: ____ . ANY NEW PROBLEMS WITH YOUR MEDICATIONS? NO . WHEN DID YOU LAST EAT? ____ . WHEN DID YOU LAST DRINK? ____ . WHAT DID YOU LAST DRINK? ____ . NAME OF PERSON DRIVING YOU HOME? ____ . DO YOU HAVE ANY OTHER QUESTIONS OR CONCERNS NO- STATES MEDS ARE CONTROLLING PAIN WELL . VITAL SIGNS WT 229 LBS, HT 71 IN, BMI 31.94 INDEX, BP 140/67 MM HG, HR 76 /MIN, RR 18 /MIN, TEMP 96.0 F, OXYGEN SAT % 94%, NA INITIALS AW 1043, REVIEWED BY: NLJ. EXAMINATION GENERAL EXAMINATION: GENERALNO ACUTE DISTRESS, WELL NOURISHED AND HYDRATED. PSYCHAPPROPRIATE MOOD AND AFFECT . LUNGS:CLEAR TO AUSCULTATION BILATERALLY, NO WHEEZES, RHONCHI, RALES. HEART:NO MURMURS, REGULAR RATE AND RHYTHM. DIAGNOSTIC TESTS REVIEWEDTHORACIC MRI REVIEWED. ASSESSMENTS PAIN IN THORACIC SPINE - M54.6 (PRIMARY) TREATMENT PAIN IN THORACIC SPINE CLINICAL NOTES: 59 YEAR OLD MALE IN TO REVIEW THORACIC MRI. HE WAS INFORMED THE MRI WAS NEGATIVE. GIVEN PRESENTING SYMPTOMS AND RESULTS OF PHYSICAL EXAMINATION RECOMMENDED CONTINUATION OF CURRENT MEDICATION REGIMEN WITH FOLLOW UP IN 2 MONTHS. PATIENT HAS EXPRESSED UNDERSTANDING OF AND WAS IN AGREEMENT WITH TREATMENT PLAN. GIVEN TIME TO ASK QUESTIONS AND EXPRESS CONCERNS. PROCEDURE CODES FA211 ESTABILISHED PATIENT [facility] CHARGE DISPOSITION & COMMUNICATION FOLLOW UP 2 MONTHS (REASON: CHRONIC PAIN ) ELECTRONICALLY SIGNED BY ALEXIA HOLLIS ON 04/28/2019 AT 11:00 AM EDT DISCLAIMER : THIS IS A VISIT SUMMARY EXTRACTED FROM THE [employer] CHART. IT IS NOT A COPY OF THE [employer] PROGRESS NOTE. MAMI
== END ==
LOC: M PAIN 10:45
PROVIDERS: ATTEND Family Medicine
DX: M54.6 Pain in thoracic spine (principal); I10 Essential (primary) hypertension; E78.5 Hyperlipidemia, unspecified; R73.01 Impaired fasting glucose; Z87.891 Personal history of nicotine dependence; Z91.018 Allergy to other foods; Z91.09 Other allergy status, other than to drugs and biological substances; Z79.84 Long term (current) use of oral hypoglycemic drugs; Z79.899 Other long term (current) drug therapy

== ENCOUNTER → 2019-05-17 | Outpatient (REF) | payer OTHER ==
[2019-05-17 17:09] LABS: ALT/SGPT 69 U/L (12-78); BILIRUBIN,TOTAL 0.8 MG/DL (0.2-1.0); BLOOD UREA NITROGEN 14 MG/DL (7-18); CALCIUM LEVEL 8.9 MG/DL (8.8-10.2); CARBON DIOXIDE LEVEL 26 MEQ/L (21-32); CHLORIDE LEVEL 106 MEQ/L (98-107); CREATININE FOR GFR 0.95 MG/DL (0.70-1.30); GLOMERULAR FILTRATION RATE > 60.0 (>49); GLUCOSE, FASTING 79 MG/DL (70-100); POTASSIUM SERUM 4.2 MEQ/L (3.5-5.1); SODIUM LEVEL 140 MEQ/L (136-145); TOTAL PROTEIN 7.8 GM/DL (6.4-8.2)
[2019-05-17 17:15] LABS: HEMOGLOBIN A1c 5.9 %
== END ==
LOC: M SFHCPLAZ 14:19
PROVIDERS: ATTEND Physician Assistant Medical
DX: E87.5 Hyperkalemia (principal); R73.01 Impaired fasting glucose
CPT/HCPCS: 36415; 80053; 83036; G0463

== ENCOUNTER → 2019-05-25 | Outpatient (CLI) | payer OTHER ==
--- NOTE | 2019-05-25 07:58 | REP ---
Clinical: Elevated liver function tests. Technique: Real time brown scale ultrasound examination using curved array transducer. Findings: Liver is increased in echogenicity and demonstrates poor through transmission suggesting fatty infiltration and hepatocellular disease. No focal hepatic lesion identified. Pancreas is normal in appearance and echotexture. The gallbladder is unremarkable and without gallstones, wall thickening, or pericholecystic fluid. No biliary ductal dilatation is appreciated and the common bile duct measures 4.8 mm diameter. The right kidney demonstrates mild atrophy without hydronephrosis and measures 8.9 x 5.2 x 3.2 cm. No ascites. Visualized abdominal aorta normal. Impression: 1. Findings to suggest fatty infiltration and/or hepatocellular disease without focal hepatic lesion. 2. Mild atrophic appearance to the right kidney without hydronephrosis. Electronically Signed by Darren Morales MD 05/25/2019 07:49 A
== END ==
LOC: M RAD 06:54
PROVIDERS: ATTEND Physician Assistant Medical
DX: R94.5 Abnormal results of liver function studies (principal)

== ENCOUNTER → 2019-06-10 | Outpatient (CLI) | payer OTHER ==
--- NOTE | 2019-06-10 09:23 | REP ---
RENAL ULTRASOUND WITH DUPLEX DOPPLER RENAL ARTERY EVALUATION: Real-time sonographic evaluation of the kidneys performed. Right kidney measures 9.0 x 3.6 x 3.7 cm and left kidney 14.0 x 7.0 x 6.2 cm. There is no hydronephrosis bilaterally. Somewhat linear echogenic focus in the lower left kidney may represent a vascular calcification. Urinary bladder is empty. Real-time ultrasound evaluation and duplex Doppler interrogation of the renal arteries is performed bilaterally. Peak systolic velocity of the abdominal aorta at the level of the renal arteries is 75.7 cm/s. Peak systolic velocity of the main right renal artery is 130.5 cm/s. Renal to aortic ration is 1.7. Intrarenal vascular could not be visualized in any portion of the right kidney. Peak systolic velocity of the main left renal artery is incidentally 6.9 cm/s distally. Renal to aortic ratio is 3.7. Resistive indices are measured in the upper, mild and lower thirds of the left kidney ranging between 0.6 and 0.75. Acceleration times are in the range of 0.03. IMPRESSION: Right kidney smaller in size then left, with mildly prominent size of the left kidney possibly indicating compensatory hypertrophy. Intrarenal vasculature on the right could not be visualized due to body habitus and bowel gas. There is no evidence of abnormal flow velocity in the main right renal artery. There is elevated peak systolic velocity in the main left renal artery with elevated renal to aortic ration suggesting greater than 60% stenosis of the left renal artery. Further evaluation may be made with CTA or MRA. Electronically Signed by Amadeo Dominguez MD 06/11/2019 09:12 A
== END ==
LOC: M RAD 07:33
PROVIDERS: ATTEND Physician Assistant Medical
DX: N26.1 Atrophy of kidney (terminal) (principal); I77.89 Other specified disorders of arteries and arterioles

== ENCOUNTER → 2019-06-30 | Outpatient (CLI) | payer OTHER ==
--- NOTE | 2019-07-02 02:19 | ECWPNPC ---
PATIENT NAME: CHIKIS ZIMMER : 1960 GENDER: MALE VISIT DATE: 06/30/2019 DISCHARGE DATE: 06/30/19 1332 VISIT LOCKED DATE TIME: PHYSICIAN: TAYLOR DAVILA RESOURCE: TAYLOR DAVILA REASON FOR APPOINTMENT 1. CHRONIC PAIN HISTORY OF PRESENT ILLNESS HISTORY OF PRESENT ILLNESS: PAIN THE PATIENT DESCRIBES THE PAIN... 59-YEAR-OLD MALE IN FOR POST TPI FOLLOW-UP. HE FEELS THE PROCEDURE WORKED REALLY WELL AND HE CONTINUES TO GET RELIEF FROM IT. HE RATES HIS PAIN CURRENTLY AT A 2 OUT OF 10 AND DESCRIBES IT ACHING. 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 FALL RISK SCREENING: SCREENING :NO FALLS REPORTED IN THE LAST YEAR CURRENT MEDICATIONS TAKING FISH OIL 1200 MG CAPSULE 1 CAPSULE ORALLY ONCE A DAY TAKING METFORMIN HCL 500 MG TABLET 1 TABLET WITH MEALS ORALLY TWICE A DAY TAKING BACLOFEN 10 MG TABLET 2 TABLET WITH FOOD OR MILK ORALLY THREE TIMES A DAY TAKING ACETAMINOPHEN ER 650 MG TABLET EXTENDED RELEASE 1 TABLET NEEDED ORALLY DAILY NEEDED TAKING GABAPENTIN 100 MG CAPSULE 2 CAPSULE ORALLY BID TAKING FOSINOPRIL SODIUM 20 MG TABLET 1 TABLET ORALLY ONCE A DAY TAKING ATORVASTATIN CALCIUM 40 MG TABLET 1 TABLET ORALLY ONCE A DAY NOT-TAKING TRIAMCINOLONE ACETONIDE 55 MCG/ACT AEROSOL 1 SPRAY IN EACH NOSTRIL NASALLY ONCE A DAY MEDICATION LIST REVIEWED AND RECONCILED WITH THE PATIENT PAST MEDICAL HISTORY HTN HYPERLIPIDEMIA IMPAIRED FASTING GLUCOSE DEGENERATIVE DISC DISEASE, LUMBAR SPINE SEASONAL ALLERGIES ALLERGIES MUSHROOMS : LETHARGIC, FAINTS - SIDE EFFECTS LEMON SCENTED RAID SURGICAL HISTORY RIGHT ARM 2008 RIGHT FOOT/RIGHT HEEL 2007 HERNIA REPAIR 1994 COLONOSCOPY NEG. 2012 DENTAL EXTRACTIONS ANGIOGRAM HEART 1997 FAMILY HISTORY FATHER: , DIAGNOSED WITH UNSPECIFIED HEART DISEASE, HYPERTENSION MOTHER: ALIVE, HYPERTENSION SIBLINGS: ALIVE 3 BROTHER(S) , 1 SISTER(S) . 2 BROTHER HAS HEART ATTACK\\\/STROKE\\NNO CHILDREN. SOCIAL HISTORY GENERAL: TOBACCO USE ARE YOU A:FORMER SMOKER HOW LONG HAS IT BEEN SINCE YOU LAST SMOKED?1-5 YEARS HIV / HEP-C SCREENING HIV TEST OFFERED TO PATIENT:YES DATE OFFERED:12/31/2017 TEST ACCEPTED:NO HEP-C TEST OFFERED TO PATIENT:YES DATE OFFERED:12/31/2017 REASON:PATIENT DECLINED TEST ACCEPTED:NO REASON:PATIENT DECLINED BROCHURE PROVIDED TO PATIENTYES EDUCATION LEVEL OF EDUCATION:FINISHED HIGH SCHOOL GED LANGUAGE LANGUAGES SPOKEN:CHINESE RECREATIONAL DRUG USE DRUG USE?YES PT USES MARIJUANA ABOUT 1-2 TIMES WEEKLY 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 VISION IMPAIRED?YES COGNITIVELY IMPAIRED?NO :CORRECTIVE LENSES READING GLASSES READINESS TO LEARN?YES LEARNING PREFERENCES?YES :HANDOUTS LEARNING CAPABILITIES PRESENT?YES EMOTIONAL BARRIERS?NO SPECIAL DEVICES?NO SHIP'S CAPTAIN NEEDED?NO PAIN CLINIC PFS, CLERGY, PUBLIC HEALTH REFERRALS HAS THE PATIENT BEEN EDUCATED REGARDING HIS/HER PLAN OF CARE?YES HAS THE PATIENT BEEN EDUCATED REGARDING PAIN, THE RISK FOR PAIN, THE IMPORTANCE OF EFFECTIVE PAIN MANAGEMENT, AND THE PAIN ASSESSMENT PROCESS?YES LATEX QUESTIONNAIRE LATEX ALLERGY : HAVE YOU EVER DEVELOPED ANY TYPE OF REACTION AFTER HANDLING LATEX PRODUCTS SUCH RUBBER GLOVES, CONDOMS, DIAPHRAGMS, BALLOONS, SOCKS, OR UNDERWEAR?NO LATEX ALLERGY : HAVE YOU EVER DEVELOPED ANY TYPE OF REACTION DURING OR AFTER DENTAL APPOINTMENT, VAGINAL/RECTAL EXAMINATION, SURGICAL PROCEDURE, OR ANY OTHER EXPOSURE?NO LATEX RISK : HAVE YOU EVER HAD ANY DIFFICULTY BREATHING OR HIVES AFTER EATING OR HANDLING ANY FRUITS, OR VEGETABLES; SUCH KIWI, BANANAS, STONE FRUITS, OR CHESTNUTSNO LATEX RISK : DO YOU HAVE A PREVIOUS PERSONAL HISTORY OF MORE THAN NINE SURGERIES, SPINA BIFIDA, OR REPEATED CATHERIZATIONS? NO LATEX RISK : ARE YOU FREQUENTLY EXPOSED TO LATEX PRODUCTS IN YOUR OCCUPATION?NO DATE ASKED : 06/09/2019 CAFFEINE CAFFEINE USE?YES COFFEE AND SODA ADVANCE DIRECTIVE ADVANCE DIRECTIVE DISCUSSED WITH PATIENT:YES PT STATES HCP IS GÓMEZ ZIMMER, CONFUCIANISM [id number] NONE NO LATTER-DAY BELIEFS THAT WOULD IMPACT HEALTH CARE. MARITAL STATUS: . ALCOHOL SCREENING DID YOU HAVE A DRINK CONTAINING ALCOHOL IN THE PAST YEAR?NO POINTS0 INTERPRETATIONNEGATIVE OCCUPATION: DISABLED. SEXUAL HX HAD SEX IN THE LAST 12 MONTHS (VAGINAL, ORAL, OR ANAL)?YES WITHWOMEN ONLY PREVENTION STRATEGIES DISCUSSED:OTHER USE PROTECTION?NO HAVE YOU EVER HAD AN STD?NO REVIEWED WITH PT 12/08/18 1315 BVREVIEWED WITH PT 02/04/19 0922 NLJREVIEWED WITH PT 03/29/19 NLJREVIEWED WITH PT 04/27/19 1104 NLJ. HOSPITALIZATION/MAJOR DIAGNOSTIC PROCEDURE SURGERY RELATED 2007 REVIEW OF SYSTEMS REVIEWED BY: PROVIDER: CHRISTOPHER GIOVANNI BOILER SETTER-C . CONSTITUTIONAL: ANY CHANGE IN YOUR MEDICAL CONDITION? NO . CHILLS NO . FEVER NO . INFECTION: DO YOU HAVE NEW INFECTIONS? NO . DO YOU HAVE HISTORY OF MRSA? NO . MUSCULOSKELETAL: ANY NEW PATTERNS OF PAIN OR NUMBNESS? NO . GASTROENTEROLOGY: ANY NEW CHANGE IN BOWEL CONTROL? NO . GENITOURINARY: ANY NEW CHANGE IN BLADDER CONTROL? NO . IS THERE A CHANCE YOU COULD BE ? NO . HEMATOLOGY/LYMPH: DO YOU TAKE ANY BLOOD THINNERS? (FOR EXAMPLE- COUMADIN, PLAVIX, AGGRENOX, PLATEL, PRADAXA, OR XARELTO) NO . WHEN WAS YOUR LAST DOSE? DATE: TIME: . NEUROLOGY: HAVE YOU FALLEN IN THE PAST 12 MONTHS? NO . ANY NEW EXTREMITY NUMBNESS OR WEAKNESS? NO . CARDIOLOGY: DO YOU HAVE A PACEMAKER OR DEFIBRILLATOR? NO . RESPIRATORY: HAVE YOU BEEN SICK IN THE PAST WEEK? NO . FEVER NO . FLU LIKE SYMPTOMS? NO . COUGH NO . INTEGUMENTARY: DO YOU HAVE ANY RASHES OR OPEN SORES? NO . ALLERGIC/IMMUNO: ARE YOU ALLERGIC TO IV DYE? NO . ANY NEW ALLERGIES? NO . PSYCHIATRIC: DO YOU HAVE THOUGHTS OF HURTING YOURSELF OR SOMEONE ELSE? NO . ARE YOU ABUSED, NEGLECTED, OR IN AN UNSAFE ENVIRONMENT? NO . ENDOCRINOLOGY: ARE YOU DIABETIC? NO . OTHER: DO YOU NEED ANY PRESCRIPTIONS? NO . IF YES, PLEASE LIST: ____ . ANY NEW PROBLEMS WITH YOUR MEDICATIONS? NO . WHEN DID YOU LAST EAT? ____ . WHEN DID YOU LAST DRINK? ____ . WHAT DID YOU LAST DRINK? ____ . NAME OF PERSON DRIVING YOU HOME? ____ . DO YOU HAVE ANY OTHER QUESTIONS OR CONCERNS NO . VITAL SIGNS WT 224.2 LBS, HT 71 IN, BMI 31.27 INDEX, BP 133/68 MM HG, HR 62 /MIN, RR 18 /MIN, TEMP 97.1 F, OXYGEN SAT % 94%, REVIEWED BY: ALY. EXAMINATION GENERAL EXAMINATION: GENERALNO ACUTE DISTRESS, WELL NOURISHED AND HYDRATED. PSYCHAPPROPRIATE MOOD AND AFFECT . LUNGS:CLEAR TO AUSCULTATION BILATERALLY, NO WHEEZES, RHONCHI, RALES. HEART:NO MURMURS, REGULAR RATE AND RHYTHM. ASSESSMENTS MYALGIA, OTHER SITE - M79.18 (PRIMARY) TREATMENT MYALGIA, OTHER SITE CLINICAL NOTES: 59-YEAR-OLD MALE IN FOR POST TPI AND CHRONIC PAIN FOLLOW-UP. GIVEN PRESENTING SYMPTOMS AND RESULTS OF PHYSICAL EXAMINATION RECOMMENDED FOLLOW-UP IN 2 MONTHS. PATIENT HAS EXPRESSED UNDERSTANDING OF AND WAS IN AGREEMENT WITH TREATMENT PLAN. GIVEN TIME TO ASK QUESTIONS AND EXPRESS CONCERNS. DISPOSITION & COMMUNICATION FOLLOW UP 2 MONTHS (REASON: CHRONIC PAIN) ELECTRONICALLY SIGNED BY ALEXIA HOLLIS ON 07/01/2019 AT 08:54 AM EDT DISCLAIMER : THIS IS A VISIT SUMMARY EXTRACTED FROM THE [employer] CHART. IT IS NOT A COPY OF THE [employer] PROGRESS NOTE. MAMI
== END ==
LOC: M PAIN 13:00
PROVIDERS: ATTEND Family Medicine
DX: M79.18 Myalgia, other site (principal); I10 Essential (primary) hypertension; E78.5 Hyperlipidemia, unspecified; R73.01 Impaired fasting glucose; M51.36 Other intervertebral disc degeneration, lumbar region; J30.2 Other seasonal allergic rhinitis; Z87.891 Personal history of nicotine dependence; Z79.84 Long term (current) use of oral hypoglycemic drugs; Z79.899 Other long term (current) drug therapy; Z91.018 Allergy to other foods; Z91.048 Other nonmedicinal substance allergy status

== ENCOUNTER → 2019-07-02 | Outpatient (CLI) | payer OTHER ==
[~2019-07-02] MED LIST: ISOVUE-370 76% 100ML VIAL (Q9967) As Ordered ONE
--- NOTE | 2019-07-02 10:17 | REP ---
CT ANGIOGRAM ABDOMEN AND PELVIS: Axial CT angiogram of the abdomen and pelvis was performed following the intravenous administration of 100 mL Isovue-370. Sagittal, coronal and 3D MIP reconstruction images are performed. The abdominal aorta is normal in caliber. There is moderate diffuse atherosclerotic calcification. Celiac, superior mesenteric and inferior mesenteric arteries demonstrate mild narrowing at the origins but no significant stenosis. There is mild plaquing and narrowing at the origin of the main left renal artery without significant stenosis. On the right there are two right renal arteries arising from the abdominal aorta. Both appear somewhat hypoplastic, particularly the more inferior renal arteries supplying the lower pole of the right kidney, which measures 1 mm in diameter. The more superior main right renal artery which is providing most of the supple in the right kidney, the upper two third of the right kidney appears mildly hypoplastic with mild plaquing and narrowing at its origin but not a degree of luminal narrowing is less than 50%. There is mild diffuse plaquing and narrowing of the common iliac arteries bilaterally without significant stenosis. External iliac and common femoral arteries demonstrate mild plaquing and narrowing significant stenosis. The liver demonstrates diffuse fatty infiltration. The liver appears somewhat enlarged measuring approximately 21 cm in length in the midclavicular line. The spleen is normal in size with no intrinsic abnormality. There is somewhat nodular thickening of both adrenal glands which I suspect represents adenomatous change. An oval central nodule in the left adrenal gland measures 18 x 10 mm. Pancreas demonstrates no mass. There is right renal atrophy. This is relatively mild. Length of the right kidney measures 8.3 cm. There is a small nodule in the lower pole of the right kidney posteriorly which is too small to characterize measuring 8 mm. I see no adenopathy, free air or free fluid. No bowel wall thickening is seen. There is mild sigmoid diverticulosis without acute diverticulitis. Urinary bladder is mildly distended but is not well evaluated. There are diffuse degenerative changes of the spine. IMPRESSION: Mild narrowing at the origins of renal arteries without significant stenosis greater than 60%. On the right there are two main renal arteries arising from the abdominal aorta. The accessory renal artery supplying the lower pole of the right kidney measures only 1 mm in diameter. The more superior main right renal artery demonstrates mild narrowing at its origin without a stenotic appearance, but is diffusely mild to moderately hypoplastic. Hepatomegaly with diffuse fatty infiltration of the liver. Diffuse thickening of the adrenal glands with central low density nodule of the left adrenal gland probably representing an adenoma at 18 x 10 mm. In the lower pole of the right kidney posteriorly there is a nodule measuring 8 mm which is too small to characterize. This could represent a hyperdense cyst or solid nodule. Recommend a followup dedicated renal CT with and without contrast in 6 months. Electronically Signed by Amadeo Dominguez MD 07/02/2019 11:31 A
== END ==
LOC: M RAD 08:20
PROVIDERS: ATTEND Physician Assistant Medical
DX: I70.1 Atherosclerosis of renal artery (principal); K76.0 Fatty (change of) liver, not elsewhere classified; N28.89 Other specified disorders of kidney and ureter
CPT/HCPCS: 74174; Q9967

== ENCOUNTER → 2019-08-30 | Outpatient (CLI) | payer OTHER ==
--- NOTE | 2019-09-03 04:06 | ECWPNPC ---
PATIENT NAME: CHIKIS ZIMMER : 1960 GENDER: MALE VISIT DATE: 08/30/2019 DISCHARGE DATE: 08/30/19 1318 VISIT LOCKED DATE TIME: PHYSICIAN: TAYLOR DAVILA RESOURCE: TAYLOR DAVILA REASON FOR APPOINTMENT 1. BACK HISTORY OF PRESENT ILLNESS HISTORY OF PRESENT ILLNESS: PAIN THE PATIENT DESCRIBES THE PAIN... 59-YEAR-OLD MALE IN FOR CHRONIC PAIN FOLLOW-UP. HE RATES HIS PAIN CURRENTLY AT A 3 OUT OF 10 AND DESCRIBES IT ACHING, AND BURNING. HE DOES ADMIT TO INCREASED PAIN IN HIS BACK AND WOULD LIKE TO DISCUSS REPEAT TRIGGER POINT INJECTIONS HE HAS HAD THESE IN THE PAST AND THEY HAVE BEEN EFFECTIVE IN RELIEVING HIS SYMPTOMS. FALL RISK SCREENING: SCREENING :NO FALLS REPORTED IN THE LAST YEAR CURRENT MEDICATIONS TAKING FISH OIL 1200 MG CAPSULE 1 CAPSULE ORALLY ONCE A DAY TAKING METFORMIN HCL 500 MG TABLET 1 TABLET WITH MEALS ORALLY TWICE A DAY TAKING BACLOFEN 10 MG TABLET 2 TABLET WITH FOOD OR MILK ORALLY THREE TIMES A DAY TAKING ACETAMINOPHEN ER 650 MG TABLET EXTENDED RELEASE 1 TABLET NEEDED ORALLY DAILY NEEDED TAKING GABAPENTIN 100 MG CAPSULE 2 CAPSULE ORALLY BID TAKING FOSINOPRIL SODIUM 20 MG TABLET 1 TABLET ORALLY ONCE A DAY TAKING ATORVASTATIN CALCIUM 40 MG TABLET 1 TABLET ORALLY ONCE A DAY NOT-TAKING TRIAMCINOLONE ACETONIDE 55 MCG/ACT AEROSOL 1 SPRAY IN EACH NOSTRIL NASALLY ONCE A DAY MEDICATION LIST REVIEWED AND RECONCILED WITH THE PATIENT PAST MEDICAL HISTORY HTN HYPERLIPIDEMIA IMPAIRED FASTING GLUCOSE DEGENERATIVE DISC DISEASE, LUMBAR SPINE SEASONAL ALLERGIES ALLERGIES MUSHROOMS : LETHARGIC, FAINTS - SIDE EFFECTS LEMON SCENTED RAID SURGICAL HISTORY RIGHT ARM 2008 RIGHT FOOT/RIGHT HEEL 2007 HERNIA REPAIR 1994 COLONOSCOPY NEG. 2013 DENTAL EXTRACTIONS ANGIOGRAM HEART 1997 FAMILY HISTORY FATHER: , DIAGNOSED WITH HYPERTENSION, UNSPECIFIED HEART DISEASE MOTHER: ALIVE, HYPERTENSION SIBLINGS: ALIVE 3 BROTHER(S) , 1 SISTER(S) . 2 BROTHER HAS HEART ATTACK\\\/STROKE\\NNO CHILDREN. SOCIAL HISTORY GENERAL: TOBACCO USE ARE YOU A:FORMER SMOKER HOW LONG HAS IT BEEN SINCE YOU LAST SMOKED?1-5 YEARS HIV / HEP-C SCREENING HIV TEST OFFERED TO PATIENT:YES DATE OFFERED:12/31/2017 TEST ACCEPTED:NO HEP-C TEST OFFERED TO PATIENT:YES DATE OFFERED:12/31/2017 REASON:PATIENT DECLINED TEST ACCEPTED:NO REASON:PATIENT DECLINED BROCHURE PROVIDED TO PATIENTYES EDUCATION LEVEL OF EDUCATION:FINISHED HIGH SCHOOL GED LANGUAGE LANGUAGES SPOKEN:[place]UT RECREATIONAL DRUG USE DRUG USE?YES PT USES MARIJUANA ABOUT 1-2 TIMES WEEKLY 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 VISION IMPAIRED?YES COGNITIVELY IMPAIRED?NO :CORRECTIVE LENSES READING GLASSES READINESS TO LEARN?YES LEARNING PREFERENCES?YES :HANDOUTS LEARNING CAPABILITIES PRESENT?YES EMOTIONAL BARRIERS?NO SPECIAL DEVICES?NO HOME HEALTH CARE PROVIDER NEEDED?NO PAIN CLINIC PFS, CLERGY, PUBLIC HEALTH REFERRALS HAS THE PATIENT BEEN EDUCATED REGARDING HIS/HER PLAN OF CARE?YES HAS THE PATIENT BEEN EDUCATED REGARDING PAIN, THE RISK FOR PAIN, THE IMPORTANCE OF EFFECTIVE PAIN MANAGEMENT, AND THE PAIN ASSESSMENT PROCESS?YES LATEX QUESTIONNAIRE LATEX ALLERGY : HAVE YOU EVER DEVELOPED ANY TYPE OF REACTION AFTER HANDLING LATEX PRODUCTS SUCH RUBBER GLOVES, CONDOMS, DIAPHRAGMS, BALLOONS, SOCKS, OR UNDERWEAR?NO LATEX ALLERGY : HAVE YOU EVER DEVELOPED ANY TYPE OF REACTION DURING OR AFTER DENTAL APPOINTMENT, VAGINAL/RECTAL EXAMINATION, SURGICAL PROCEDURE, OR ANY OTHER EXPOSURE?NO DATE ASKED : 06/09/2019 LATEX RISK : HAVE YOU EVER HAD ANY DIFFICULTY BREATHING OR HIVES AFTER EATING OR HANDLING ANY FRUITS, OR VEGETABLES; SUCH KIWI, BANANAS, STONE FRUITS, OR CHESTNUTSNO LATEX RISK : DO YOU HAVE A PREVIOUS PERSONAL HISTORY OF MORE THAN NINE SURGERIES, SPINA BIFIDA, OR REPEATED CATHERIZATIONS? NO LATEX RISK : ARE YOU FREQUENTLY EXPOSED TO LATEX PRODUCTS IN YOUR OCCUPATION?NO CAFFEINE CAFFEINE USE?YES COFFEE AND SODA ADVANCE DIRECTIVE ADVANCE DIRECTIVE DISCUSSED WITH PATIENT:YES PT STATES HCP IS GÓMEZ ZIMMER, CHURCH [id number] NONE NO LUTHERAN BELIEFS THAT WOULD IMPACT HEALTH CARE. MARITAL STATUS: . ALCOHOL SCREENING DID YOU HAVE A DRINK CONTAINING ALCOHOL IN THE PAST YEAR?NO POINTS0 INTERPRETATIONNEGATIVE OCCUPATION: DISABLED. SEXUAL HX HAD SEX IN THE LAST 12 MONTHS (VAGINAL, ORAL, OR ANAL)?YES WITHWOMEN ONLY PREVENTION STRATEGIES DISCUSSED:OTHER USE PROTECTION?NO HAVE YOU EVER HAD AN STD?NO REVIEWED WITH PT 12/08/18 1315 BVREVIEWED WITH PT 02/04/19 0922 NLJREVIEWED WITH PT 03/29/19 NLJREVIEWED WITH PT 04/27/19 1104 NLJ. HOSPITALIZATION/MAJOR DIAGNOSTIC PROCEDURE SURGERY RELATED 2007 REVIEW OF SYSTEMS REVIEWED BY: PROVIDER: ABDOULAYE HALE-Susanne . CONSTITUTIONAL: ANY CHANGE IN YOUR MEDICAL CONDITION? NO . CHILLS NO . FEVER NO . INFECTION: DO YOU HAVE NEW INFECTIONS? NO . DO YOU HAVE HISTORY OF MRSA? NO . MUSCULOSKELETAL: ANY NEW PATTERNS OF PAIN OR NUMBNESS? NO . GASTROENTEROLOGY: ANY NEW CHANGE IN BOWEL CONTROL? NO . GENITOURINARY: ANY NEW CHANGE IN BLADDER CONTROL? NO . IS THERE A CHANCE YOU COULD BE ? NO . HEMATOLOGY/LYMPH: DO YOU TAKE ANY BLOOD THINNERS? (FOR EXAMPLE- COUMADIN, PLAVIX, AGGRENOX, PLATEL, PRADAXA, OR XARELTO) NO - DOES TAKE ASPIRIN . WHEN WAS YOUR LAST DOSE? DATE: TIME: . NEUROLOGY: HAVE YOU FALLEN IN THE PAST 12 MONTHS? NO . ANY NEW EXTREMITY NUMBNESS OR WEAKNESS? YES - RIGHT SHOULDER . CARDIOLOGY: DO YOU HAVE A PACEMAKER OR DEFIBRILLATOR? NO . RESPIRATORY: HAVE YOU BEEN SICK IN THE PAST WEEK? NO . FEVER NO . FLU LIKE SYMPTOMS? NO . COUGH NO . INTEGUMENTARY: DO YOU HAVE ANY RASHES OR OPEN SORES? NO . ALLERGIC/IMMUNO: ARE YOU ALLERGIC TO IV DYE? NO . ANY NEW ALLERGIES? NO . PSYCHIATRIC: DO YOU HAVE THOUGHTS OF HURTING YOURSELF OR SOMEONE ELSE? NO . ARE YOU ABUSED, NEGLECTED, OR IN AN UNSAFE ENVIRONMENT? NO . ENDOCRINOLOGY: ARE YOU DIABETIC? NO . OTHER: DO YOU NEED ANY PRESCRIPTIONS? NO . IF YES, PLEASE LIST: ____ . ANY NEW PROBLEMS WITH YOUR MEDICATIONS? NO . WHEN DID YOU LAST EAT? ____ . WHEN DID YOU LAST DRINK? ____ . WHAT DID YOU LAST DRINK? ____ . NAME OF PERSON DRIVING YOU HOME? ____ . DO YOU HAVE ANY OTHER QUESTIONS OR CONCERNS NO . VITAL SIGNS WT 225.2 LBS, HT 71 IN, BMI 31.41 INDEX, BP 114/70 MM HG, HR 691 /MIN, RR 16 /MIN, TEMP 97.6 F, OXYGEN SAT % 96%, REVIEWED BY: ALY. EXAMINATION GENERAL EXAMINATION: GENERALNO ACUTE DISTRESS, WELL NOURISHED AND HYDRATED. PSYCHAPPROPRIATE MOOD AND AFFECT . LUNGS:CLEAR TO AUSCULTATION BILATERALLY, NO WHEEZES, RHONCHI, RALES. HEART:NO MURMURS, REGULAR RATE AND RHYTHM. BACK:POINT TENDER BILATERAL LOW BACK, SURROUNDING SKIN SHOWS NO ERYTHEMA, ECCHYMOSIS, INCREASED WARMTH, AND/OR SKIN ERUPTIONS NOTED. . ASSESSMENTS MYALGIA, OTHER SITE - M79.18 (PRIMARY) TREATMENT MYALGIA, OTHER SITE NOTES: BILATERAL LOW BACK TPI. CLINICAL NOTES: 59-YEAR-OLD MALE IN FOR CHRONIC PAIN FOLLOW-UP. GIVEN PRESENTING SYMPTOMS AND RESULTS OF PHYSICAL EXAMINATION RECOMMENDED BILATERAL TPI OF THE LOW BACK WITH POST PROCEDURAL FOLLOW-UP. PATIENT IS EXPRESSED UNDERSTANDING OF AND WAS IN AGREEMENT WITH TREATMENT PLAN. GIVEN TIME TO ASK QUESTIONS AND EXPRESS CONCERNS. PREVENTIVE MEDICINE PAIN CLINIC TEACHING: PROCEDURE TEACHING PRE TRIGGER POINT INJECTION INSTRUCTIONS REVIEWED WITH PT. VERBALIZED UNDERSTANDING.. PROCEDURE CODES FA211 ESTABILISHED PATIENT [facility] CHARGE DISPOSITION & COMMUNICATION FOLLOW UP POSTPROCEDURE (REASON: BILATERAL LOW BACK TPI) ELECTRONICALLY SIGNED BY ALEXIA HOLLIS ON 09/02/2019 AT 08:51 AM EST DISCLAIMER : THIS IS A VISIT SUMMARY EXTRACTED FROM THE [employer] CHART. IT IS NOT A COPY OF THE [employer] PROGRESS NOTE. MAMI
== END ==
LOC: M PAIN 13:00
PROVIDERS: ATTEND Family Medicine
DX: M79.18 Myalgia, other site (principal)

== ENCOUNTER → 2019-09-16 | Outpatient (REF) | payer OTHER ==
[2019-09-16 15:30] LABS: BASO % 0.6 % (0.0-1.0); EOS # 0.1 10^3/uL (0.0-0.5); EOS % 1.7 % (0.0-3.0); HEMATOCRIT 46.7 % (42.0-52.0); HEMOGLOBIN 14.7 g/dl (13.5-17.5); LYMPH % 28.5 % (24.0-44.0); MEAN CORPUSCULAR HGB CONC 31.5 g/dl (32.0-36.5); MONO # 0.4 10^3/uL (0.0-0.8); MONO % 6.3 % (0.0-5.0); NEUTROPHILS # 4.3 10^3/uL (1.5-8.5); NEUTROPHILS % 62.6 % (36.0-66.0); PLATELET COUNT, AUTOMATED 212 10^3/uL (150-450); RED BLOOD COUNT 5.25 10^6/uL (4.30-6.10); WHITE BLOOD COUNT 6.9 10^3/uL (4.0-10.0)
[2019-09-16 15:33] LABS: ALBUMIN 4.2 GM/DL (3.2-5.2); ALT/SGPT 45 U/L (12-78); BILIRUBIN,TOTAL 0.6 MG/DL (0.2-1.0); BLOOD UREA NITROGEN 13 MG/DL (7-18); CALCIUM LEVEL 9.1 MG/DL (8.8-10.2); CARBON DIOXIDE LEVEL 27 MEQ/L (21-32); CHLORIDE LEVEL 106 MEQ/L (98-107); CHOLESTEROL LEVEL 167 MG/DL (<200); CHOLESTEROL RISK RATIO 4.513 (<5); CPK CREATINE PHOSPHOKINASE 138 U/L (39-308); CREATININE FOR GFR 1.08 MG/DL (0.70-1.30); FREE T4 0.91 NG/DL (0.76-1.46); GLOMERULAR FILTRATION RATE > 60.0 (>49); GLUCOSE, FASTING 94 MG/DL (70-100); HDL CHOLESTEROL 37 MG/DL (>40); LDL CHOLESTEROL 100 MG/DL (<100); NON-HDL-C 130 MG/DL; POTASSIUM SERUM 4.5 MEQ/L (3.5-5.1); SODIUM LEVEL 139 MEQ/L (136-145); TOTAL PROTEIN 7.8 GM/DL (6.4-8.2); TRIGLYCERIDES LEVEL 150 MG/DL (<150)
[2019-09-16 15:48] LABS: HEMOGLOBIN A1c 6.2 %
== END ==
LOC: M SFHCPLAZ 13:45
PROVIDERS: ATTEND Physician Assistant Medical
DX: R73.01 Impaired fasting glucose (principal); E66.9 Obesity, unspecified; I10 Essential (primary) hypertension; Z13.220 Encounter for screening for lipoid disorders
CPT/HCPCS: 36415; 80053; 80061; 82550; 83036; 84439; 84443; 85025; G0463

== ENCOUNTER → 2019-09-22 | Outpatient (CLI) | payer OTHER ==
[~2019-09-22] MED LIST changes: +BUPIVACAINE HCL 0.25% 30 ML VIAL As Ordered ONE; -ISOVUE-370 76% 100ML VIAL (Q9967) As Ordered ONE; +TRIAMCINOLONE ACETONIDE SUSP 40 MG/ML VIAL (J3301) As Ordered ONE
--- NOTE | 2019-10-06 02:28 | ECWPNPC ---
PATIENT NAME: CHIKIS ZIMMER : 1960 GENDER: MALE VISIT DATE: 09/22/2019 DISCHARGE DATE: 09/22/19 1550 VISIT LOCKED DATE TIME: PHYSICIAN: HELEN CASSIDY MD RESOURCE: HELEN CASSIDY MD REASON FOR APPOINTMENT 1. TPI HISTORY OF PRESENT ILLNESS HISTORY OF PRESENT ILLNESS: PAIN THE PATIENT DESCRIBES THE PAIN... FALL RISK SCREENING: SCREENING :NO FALLS REPORTED IN THE LAST YEAR CURRENT MEDICATIONS TAKING FISH OIL 1200 MG CAPSULE 1 CAPSULE ORALLY ONCE A DAY, NOTES: 09/22/19 0900 TAKING ATORVASTATIN CALCIUM 40 MG TABLET 1 TABLET ORALLY ONCE A DAY, NOTES: 09/21/19 TAKING FOSINOPRIL SODIUM 20 MG TABLET 1 TABLET ORALLY ONCE A DAY, NOTES: 09/21/19 TAKING BACLOFEN 10 MG TABLET 2 TABLET WITH FOOD OR MILK ORALLY THREE TIMES A DAY, NOTES: 09/21/19 TAKING ACETAMINOPHEN ER 650 MG TABLET EXTENDED RELEASE 2 TABLETS NEEDED ORALLY EVERY 8 HRS, NOTES: 09/21/19 TAKING GABAPENTIN 100 MG CAPSULE 2 CAPSULE ORALLY BID, NOTES: 09/21/19 TAKING METFORMIN HCL 500 MG TABLET 1 TABLET WITH MEALS ORALLY TWICE A DAY, NOTES: 09/22/19 0900 MEDICATION LIST REVIEWED AND RECONCILED WITH THE PATIENT PAST MEDICAL HISTORY HTN HYPERLIPIDEMIA IMPAIRED FASTING GLUCOSE DEGENERATIVE DISC DISEASE, LUMBAR SPINE SEASONAL ALLERGIES ALLERGIES MUSHROOMS : LETHARGIC, FAINTS - SIDE EFFECTS LEMON SCENTED RAID SURGICAL HISTORY RIGHT ARM 2007 RIGHT FOOT/RIGHT HEEL 2007 HERNIA REPAIR 1994 COLONOSCOPY NEG. 2013 DENTAL EXTRACTIONS ANGIOGRAM HEART 1997 FAMILY HISTORY FATHER: , DIAGNOSED WITH HYPERTENSION, UNSPECIFIED HEART DISEASE MOTHER: ALIVE, HYPERTENSION SIBLINGS: ALIVE 3 BROTHER(S) , 1 SISTER(S) . 2 BROTHER HAS HEART ATTACK\\\/STROKE\\NNO CHILDREN. SOCIAL HISTORY GENERAL: TOBACCO USE ARE YOU A:FORMER SMOKER HOW LONG HAS IT BEEN SINCE YOU LAST SMOKED?1-5 YEARS HIV / HEP-C SCREENING HIV TEST OFFERED TO PATIENT:YES DATE OFFERED:12/31/2017 TEST ACCEPTED:NO HEP-C TEST OFFERED TO PATIENT:YES DATE OFFERED:12/31/2017 REASON:PATIENT DECLINED TEST ACCEPTED:NO REASON:PATIENT DECLINED BROCHURE PROVIDED TO PATIENTYES OTHERS AT HOME: SPOUSE. EDUCATION LEVEL OF EDUCATION:FINISHED HIGH SCHOOL GED DIET: REGULAR. LANGUAGE LANGUAGES SPOKEN:FRENCH DOMESTIC VIOLENCE STATUS: RECREATIONAL DRUG USE DRUG USE?YES PT USES MARIJUANA ABOUT 1-2 TIMES WEEKLY EXERCISE: NO REGULAR EXERCISE. 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 VISION IMPAIRED?YES COGNITIVELY IMPAIRED?NO :CORRECTIVE LENSES READING GLASSES READINESS TO LEARN?YES LEARNING PREFERENCES?YES :HANDOUTS LEARNING CAPABILITIES PRESENT?YES EMOTIONAL BARRIERS?NO SPECIAL DEVICES?NO DOG FOOD SHREDDER OPERATOR NEEDED?NO PAIN CLINIC PFS, CLERGY, PUBLIC HEALTH REFERRALS HAS THE PATIENT BEEN EDUCATED REGARDING HIS/HER PLAN OF CARE?YES HAS THE PATIENT BEEN EDUCATED REGARDING PAIN, THE RISK FOR PAIN, THE IMPORTANCE OF EFFECTIVE PAIN MANAGEMENT, AND THE PAIN ASSESSMENT PROCESS?YES LATEX QUESTIONNAIRE LATEX ALLERGY : HAVE YOU EVER DEVELOPED ANY TYPE OF REACTION AFTER HANDLING LATEX PRODUCTS SUCH RUBBER GLOVES, CONDOMS, DIAPHRAGMS, BALLOONS, SOCKS, OR UNDERWEAR?NO LATEX ALLERGY : HAVE YOU EVER DEVELOPED ANY TYPE OF REACTION DURING OR AFTER DENTAL APPOINTMENT, VAGINAL/RECTAL EXAMINATION, SURGICAL PROCEDURE, OR ANY OTHER EXPOSURE?NO DATE ASKED : 06/09/2019 LATEX RISK : HAVE YOU EVER HAD ANY DIFFICULTY BREATHING OR HIVES AFTER EATING OR HANDLING ANY FRUITS, OR VEGETABLES; SUCH KIWI, BANANAS, STONE FRUITS, OR CHESTNUTSNO LATEX RISK : DO YOU HAVE A PREVIOUS PERSONAL HISTORY OF MORE THAN NINE SURGERIES, SPINA BIFIDA, OR REPEATED CATHERIZATIONS? NO LATEX RISK : ARE YOU FREQUENTLY EXPOSED TO LATEX PRODUCTS IN YOUR OCCUPATION?NO CAFFEINE CAFFEINE USE?YES COFFEE AND SODA ADVANCE DIRECTIVE ADVANCE DIRECTIVE DISCUSSED WITH PATIENT:YES PT STATES HCP IS GÓMEZ ZIMMER, BUDDHISM [id number] NONE NO JAINISM BELIEFS THAT WOULD IMPACT HEALTH CARE. MARITAL STATUS: . ALCOHOL SCREENING DID YOU HAVE A DRINK CONTAINING ALCOHOL IN THE PAST YEAR?NO POINTS0 INTERPRETATIONNEGATIVE OCCUPATION: DISABLED. SEXUAL HX HAD SEX IN THE LAST 12 MONTHS (VAGINAL, ORAL, OR ANAL)?YES WITHWOMEN ONLY PREVENTION STRATEGIES DISCUSSED:OTHER USE PROTECTION?NO HAVE YOU EVER HAD AN STD?NO REVIEWED WITH PT 12/08/18 1315 BVREVIEWED WITH PT 02/04/19 0922 NLJREVIEWED WITH PT 03/29/19 NLJREVIEWED WITH PT 04/27/19 1104 NLJ. HOSPITALIZATION/MAJOR DIAGNOSTIC PROCEDURE SURGERY RELATED 2007 REVIEW OF SYSTEMS REVIEWED BY: PROVIDER: . CONSTITUTIONAL: ANY CHANGE IN YOUR MEDICAL CONDITION? NO . CHILLS NO . FEVER NO . INFECTION: DO YOU HAVE NEW INFECTIONS? NO . DO YOU HAVE HISTORY OF MRSA? NO . MUSCULOSKELETAL: ANY NEW PATTERNS OF PAIN OR NUMBNESS? NO . GASTROENTEROLOGY: ANY NEW CHANGE IN BOWEL CONTROL? NO . GENITOURINARY: ANY NEW CHANGE IN BLADDER CONTROL? NO . IS THERE A CHANCE YOU COULD BE ? NO . HEMATOLOGY/LYMPH: DO YOU TAKE ANY BLOOD THINNERS? (FOR EXAMPLE- COUMADIN, PLAVIX, AGGRENOX, PLATEL, PRADAXA, OR XARELTO) NO . WHEN WAS YOUR LAST DOSE? DATE: TIME: . NEUROLOGY: HAVE YOU FALLEN IN THE PAST 12 MONTHS? NO . ANY NEW EXTREMITY NUMBNESS OR WEAKNESS? NO . CARDIOLOGY: DO YOU HAVE A PACEMAKER OR DEFIBRILLATOR? NO . RESPIRATORY: HAVE YOU BEEN SICK IN THE PAST WEEK? NO . FEVER NO . FLU LIKE SYMPTOMS? NO . COUGH NO . INTEGUMENTARY: DO YOU HAVE ANY RASHES OR OPEN SORES? NO . ALLERGIC/IMMUNO: ARE YOU ALLERGIC TO IV DYE? NO . ANY NEW ALLERGIES? NO . PSYCHIATRIC: DO YOU HAVE THOUGHTS OF HURTING YOURSELF OR SOMEONE ELSE? NO . ARE YOU ABUSED, NEGLECTED, OR IN AN UNSAFE ENVIRONMENT? NO . ENDOCRINOLOGY: ARE YOU DIABETIC? NO . OTHER: DO YOU NEED ANY PRESCRIPTIONS? NO . IF YES, PLEASE LIST: ____ . ANY NEW PROBLEMS WITH YOUR MEDICATIONS? NO . WHEN DID YOU LAST EAT? 09/21/19 PM . WHEN DID YOU LAST DRINK? 09/22/19 1100 . WHAT DID YOU LAST DRINK? WATER . NAME OF PERSON DRIVING YOU HOME? GÓMEZ . DO YOU HAVE ANY OTHER QUESTIONS OR CONCERNS NO . VITAL SIGNS WT 218.8 LBS, HT 71 IN, BMI 30.51 INDEX, BP 130/71 MM HG, HR 57 /MIN, RR 18 /MIN, TEMP 97.0 F, OXYGEN SAT % 98% RA, BLOOD GLUCOSE LEVEL N/A, SAFE IN ENV? (Y/N) YESA. NICK KONG. ASSESSMENTS MYALGIA, OTHER SITE - M79.18 (PRIMARY) PROCEDURES PN TRIGGER POINT INJECTION WITH STEROIDS PRE PROCEDURE DIAGNOSIS 1. MYALGIA 2. PAIN AT BILATERAL LUMBAR AREA. POST PROCEDURE DIAGNOSIS 1. MYALGIA 2. PAIN AT BILATERAL LUMBAR AREA. PROCEDURE TRIGGER POINT INJECTION AT RIGHT AND LEFT LUMBAR AREA. SURGEON DR. HELEN CASSIDY MASH FILTER CLOTH CHANGER NONE ANESTHESIA LOCAL PRE PROCEDURE NOTE THE PATIENT HAS A HISTORY OF CHRONIC PAIN AT THE RIGHT AND LEFT LOW BACK AREA. I EVALUATED THE PATIENT AND REVIEWED THE CHART. THERE IS EVIDENCE OF BANDS OF TISSUE WITH RESTRICTION OF MOVEMENT AND PRESENCE OF TRIGGER POINT AT THE AFFECTED AREA. I WENT OVER THE RISKS, ALTERNATIVES, AND BENEFITS ASSOCIATED WITH THIS PROCEDURE. THE PATIENT WOULD LIKE TO PROCEED AND GIVES CONSENT TO PERFORM THE PROCEDURE. THE PATIENT DENIES UNEXPLAINABLE WEIGHT LOSS, FEVER, CHILLS, OR NEW CHANGES IN URINARY OR BOWEL CONTROL DESCRIPTION OF PROCEDURE THE PATIENT WAS BROUGHT TO THE PROCEDURE ROOM AND PLACED IN THE SITTING POSITION. THE AREA WAS CLEANED WITH ALCOHOL. THE PROCEDURE WAS DONE USING ASEPTIC STERILE TECHNIQUE. I CHECKED LATERALITY AND THE LEVEL WHERE THE PROCEDURE WAS GOING TO BE PERFORMED WITH THE PATIENT AND THE SUPPORTING STAFF AT THE MOMENT OF THE TIME OUT IN THE PROCEDURE ROOM. USING A 25-GAUGE NEEDLE, TRIGGER POINTS WERE INJECTED AT THE RIGHT AND LEFT LOW BACK AREA WITH A TOTAL OF 40 ML OF BUPIVACAINE 0.25% AND KENALOG 40 MG. THERE WAS NO EVIDENCE OF BLOOD, PARESTHESIA OR CEREBROSPINAL FLUID DURING THE PROCEDURE. THE PATIENT WAS SENT TO THE RECOVERY ROOM. THE PATIENT WAS MOVING THE EXTREMITIES AND DOING WELL. THERE WAS NO COMPLICATION DURING THE PROCEDURE POST PROCEDURE NOTE THE PATIENT WILL BE SEEN IN A FOLLOW UP IN THE NEXT FEW WEEKS. I AM LOOKING FOR LONG LASTING PAIN RELIEF WITH THIS INJECTION. INSTRUCTIONS WERE GIVEN, QUESTIONS WERE ANSWERED, AND THE PATIENT EXPRESSED UNDERSTANDING AND AGREES WITH THE PLAN. I, LISBETH CLAUDIO, DOCUMENTED THE ABOVE INFORMATION ACTING A SCRIBE FOR DR. CASSIDY. I HAVE REVIEWED THE ABOVE DOCUMENT, WRITTEN BY LISBETH DURHAM AND I VERIFY THAT IT IS ACCURATE. PROCEDURE CODES 73260 INJ TRIGGER POINT 09/02 [facility] DISPOSITION & COMMUNICATION FOLLOW UP 3 WEEKS ELECTRONICALLY SIGNED BY HELEN CASSIDY MD, MD ON 10/05/2019 AT 11:52 AM EST DISCLAIMER : THIS IS A VISIT SUMMARY EXTRACTED FROM THE [employer] CHART. IT IS NOT A COPY OF THE [employer] PROGRESS NOTE. MTDD
== END ==
LOC: M PAIN 14:15
PROVIDERS: ATTEND Anesthesiology
DX: M79.18 Myalgia, other site (principal); I10 Essential (primary) hypertension; E78.5 Hyperlipidemia, unspecified; R73.01 Impaired fasting glucose; Z87.891 Personal history of nicotine dependence; Z91.018 Allergy to other foods; Z91.09 Other allergy status, other than to drugs and biological substances; Z79.84 Long term (current) use of oral hypoglycemic drugs; Z79.899 Other long term (current) drug therapy
CPT/HCPCS: 20552; J3301

== ENCOUNTER → 2019-10-06 | Outpatient (CLI) | payer OTHER ==
--- NOTE | 2019-10-08 02:46 | ECWPNPC ---
PATIENT NAME: CHIKIS ZIMMER : 1960 GENDER: MALE VISIT DATE: 10/06/2019 DISCHARGE DATE: 10/06/19 1334 VISIT LOCKED DATE TIME: PHYSICIAN: TAYLOR DAVILA RESOURCE: TAYLOR DAVILA REASON FOR APPOINTMENT 1. POST TPI HISTORY OF PRESENT ILLNESS HISTORY OF PRESENT ILLNESS: PAIN THE PATIENT DESCRIBES THE PAIN... 59-YEAR-OLD MALE IN FOR POST TPI FOLLOW-UP. HE FEELS THE PROCEDURE WORKED WELL OVERALL STATING THAT HE HAS INCREASED FUNCTIONALITY AND IS ABLE TO SLEEP THROUGHOUT THE NIGHT CURRENTLY. HE RATES HIS PAIN AT A 2 OUT OF 10 CURRENTLY AND DESCRIBES IT SHOOTING. FALL RISK SCREENING: SCREENING :NO FALLS REPORTED IN THE LAST YEAR CURRENT MEDICATIONS TAKING FISH OIL 1200 MG CAPSULE 1 CAPSULE ORALLY ONCE A DAY TAKING ATORVASTATIN CALCIUM 40 MG TABLET 1 TABLET ORALLY ONCE A DAY TAKING FOSINOPRIL SODIUM 20 MG TABLET 1 TABLET ORALLY ONCE A DAY TAKING BACLOFEN 10 MG TABLET 2 TABLET WITH FOOD OR MILK ORALLY THREE TIMES A DAY TAKING ACETAMINOPHEN ER 650 MG TABLET EXTENDED RELEASE 2 TABLETS NEEDED ORALLY EVERY 8 HRS TAKING GABAPENTIN 100 MG CAPSULE 2 CAPSULE ORALLY BID TAKING METFORMIN HCL 500 MG TABLET 1 TABLET WITH MEALS ORALLY TWICE A DAY MEDICATION LIST REVIEWED AND RECONCILED WITH THE PATIENT PAST MEDICAL HISTORY HTN HYPERLIPIDEMIA IMPAIRED FASTING GLUCOSE DEGENERATIVE DISC DISEASE, LUMBAR SPINE SEASONAL ALLERGIES ALLERGIES MUSHROOMS : LETHARGIC, FAINTS - SIDE EFFECTS LEMON SCENTED RAID SURGICAL HISTORY RIGHT ARM 2008 RIGHT FOOT/RIGHT HEEL 2007 HERNIA REPAIR 1994 COLONOSCOPY NEG. 2013 DENTAL EXTRACTIONS ANGIOGRAM HEART 1997 FAMILY HISTORY FATHER: , DIAGNOSED WITH HYPERTENSION, UNSPECIFIED HEART DISEASE MOTHER: ALIVE, HYPERTENSION SIBLINGS: ALIVE 3 BROTHER(S) , 1 SISTER(S) . 2 BROTHER HAS HEART ATTACK\\\/STROKE\\NNO CHILDREN. SOCIAL HISTORY GENERAL: TOBACCO USE ARE YOU A:FORMER SMOKER HOW LONG HAS IT BEEN SINCE YOU LAST SMOKED?1-5 YEARS HIV / HEP-C SCREENING HIV TEST OFFERED TO PATIENT:YES DATE OFFERED:12/31/2017 TEST ACCEPTED:NO HEP-C TEST OFFERED TO PATIENT:YES DATE OFFERED:12/31/2017 REASON:PATIENT DECLINED TEST ACCEPTED:NO REASON:PATIENT DECLINED BROCHURE PROVIDED TO PATIENTYES OTHERS AT HOME: SPOUSE. EDUCATION LEVEL OF EDUCATION:FINISHED HIGH SCHOOL GED DIET: REGULAR. LANGUAGE LANGUAGES SPOKEN:PERSIAN DOMESTIC VIOLENCE STATUS: RECREATIONAL DRUG USE DRUG USE?YES PT USES MARIJUANA ABOUT 1-2 TIMES WEEKLY EXERCISE: NO REGULAR EXERCISE. 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 VISION IMPAIRED?YES COGNITIVELY IMPAIRED?NO :CORRECTIVE LENSES READING GLASSES READINESS TO LEARN?YES LEARNING PREFERENCES?YES :HANDOUTS LEARNING CAPABILITIES PRESENT?YES EMOTIONAL BARRIERS?NO SPECIAL DEVICES?NO LETTER OF CREDIT DOCUMENT EXAMINER NEEDED?NO PAIN CLINIC PFS, CLERGY, PUBLIC HEALTH REFERRALS HAS THE PATIENT BEEN EDUCATED REGARDING HIS/HER PLAN OF CARE?YES HAS THE PATIENT BEEN EDUCATED REGARDING PAIN, THE RISK FOR PAIN, THE IMPORTANCE OF EFFECTIVE PAIN MANAGEMENT, AND THE PAIN ASSESSMENT PROCESS?YES LATEX QUESTIONNAIRE LATEX ALLERGY : HAVE YOU EVER DEVELOPED ANY TYPE OF REACTION AFTER HANDLING LATEX PRODUCTS SUCH RUBBER GLOVES, CONDOMS, DIAPHRAGMS, BALLOONS, SOCKS, OR UNDERWEAR?NO LATEX ALLERGY : HAVE YOU EVER DEVELOPED ANY TYPE OF REACTION DURING OR AFTER DENTAL APPOINTMENT, VAGINAL/RECTAL EXAMINATION, SURGICAL PROCEDURE, OR ANY OTHER EXPOSURE?NO DATE ASKED : 06/09/2019 LATEX RISK : HAVE YOU EVER HAD ANY DIFFICULTY BREATHING OR HIVES AFTER EATING OR HANDLING ANY FRUITS, OR VEGETABLES; SUCH KIWI, BANANAS, STONE FRUITS, OR CHESTNUTSNO LATEX RISK : DO YOU HAVE A PREVIOUS PERSONAL HISTORY OF MORE THAN NINE SURGERIES, SPINA BIFIDA, OR REPEATED CATHERIZATIONS? NO LATEX RISK : ARE YOU FREQUENTLY EXPOSED TO LATEX PRODUCTS IN YOUR OCCUPATION?NO CAFFEINE CAFFEINE USE?YES COFFEE AND SODA ADVANCE DIRECTIVE ADVANCE DIRECTIVE DISCUSSED WITH PATIENT:YES PT STATES HCP IS GÓMEZ ZIMMER, JAINISM [id number] NONE NO DRUZE BELIEFS THAT WOULD IMPACT HEALTH CARE. MARITAL STATUS: . ALCOHOL SCREENING DID YOU HAVE A DRINK CONTAINING ALCOHOL IN THE PAST YEAR?NO POINTS0 INTERPRETATIONNEGATIVE OCCUPATION: DISABLED. SEXUAL HX HAD SEX IN THE LAST 12 MONTHS (VAGINAL, ORAL, OR ANAL)?YES WITHWOMEN ONLY PREVENTION STRATEGIES DISCUSSED:OTHER USE PROTECTION?NO HAVE YOU EVER HAD AN STD?NO REVIEWED WITH PT 12/08/18 1315 BVREVIEWED WITH PT 02/04/19 0922 NLJREVIEWED WITH PT 03/29/19 NLJREVIEWED WITH PT 04/27/19 1104 NLJ. HOSPITALIZATION/MAJOR DIAGNOSTIC PROCEDURE SURGERY RELATED 2007 REVIEW OF SYSTEMS REVIEWED BY: PROVIDER: ABDOULAYE VICENTE . CONSTITUTIONAL: ANY CHANGE IN YOUR MEDICAL CONDITION? NO . CHILLS NO . FEVER NO . INFECTION: DO YOU HAVE NEW INFECTIONS? NO . DO YOU HAVE HISTORY OF MRSA? NO . MUSCULOSKELETAL: ANY NEW PATTERNS OF PAIN OR NUMBNESS? NO . GASTROENTEROLOGY: ANY NEW CHANGE IN BOWEL CONTROL? NO . GENITOURINARY: ANY NEW CHANGE IN BLADDER CONTROL? NO . IS THERE A CHANCE YOU COULD BE ? NO . HEMATOLOGY/LYMPH: DO YOU TAKE ANY BLOOD THINNERS? (FOR EXAMPLE- COUMADIN, PLAVIX, AGGRENOX, PLATEL, PRADAXA, OR XARELTO) NO . WHEN WAS YOUR LAST DOSE? DATE: TIME: . NEUROLOGY: HAVE YOU FALLEN IN THE PAST 12 MONTHS? NO . ANY NEW EXTREMITY NUMBNESS OR WEAKNESS? NO . CARDIOLOGY: DO YOU HAVE A PACEMAKER OR DEFIBRILLATOR? NO . RESPIRATORY: HAVE YOU BEEN SICK IN THE PAST WEEK? NO . FEVER NO . FLU LIKE SYMPTOMS? NO . COUGH NO . INTEGUMENTARY: DO YOU HAVE ANY RASHES OR OPEN SORES? NO . ALLERGIC/IMMUNO: ARE YOU ALLERGIC TO IV DYE? NO . ANY NEW ALLERGIES? NO . PSYCHIATRIC: DO YOU HAVE THOUGHTS OF HURTING YOURSELF OR SOMEONE ELSE? NO . ARE YOU ABUSED, NEGLECTED, OR IN AN UNSAFE ENVIRONMENT? NO . ENDOCRINOLOGY: ARE YOU DIABETIC? NO . OTHER: DO YOU NEED ANY PRESCRIPTIONS? NO . IF YES, PLEASE LIST: ____ . ANY NEW PROBLEMS WITH YOUR MEDICATIONS? NO . WHEN DID YOU LAST EAT? ____ . WHEN DID YOU LAST DRINK? ____ . WHAT DID YOU LAST DRINK? ____ . NAME OF PERSON DRIVING YOU HOME? ____ . DO YOU HAVE ANY OTHER QUESTIONS OR CONCERNS NO . VITAL SIGNS WT 211.6 LBS, HT 71 IN, BMI 29.51 INDEX, BP 128/74 MM HG, HR 67 /MIN, RR 18 /MIN, TEMP 97.6 F, OXYGEN SAT % 96%, NA INITIALS AW 1315, REVIEWED BY: EM. EXAMINATION GENERAL EXAMINATION: GENERALNO ACUTE DISTRESS, WELL NOURISHED AND HYDRATED. PSYCHAPPROPRIATE MOOD AND AFFECT . LUNGS:CLEAR TO AUSCULTATION BILATERALLY, NO WHEEZES, RHONCHI, RALES. HEART:NO MURMURS, REGULAR RATE AND RHYTHM. ASSESSMENTS MYALGIA, OTHER SITE - M79.18 (PRIMARY) TREATMENT MYALGIA, OTHER SITE CLINICAL NOTES: 59-YEAR-OLD MALE IN FOR POST TPI FOLLOW-UP. GIVEN PRESENTING SYMPTOMS AND RESULTS OF PHYSICAL EXAMINATION RECOMMEND FOLLOW-UP IN 2 MONTHS. PATIENT HAS EXPRESSED UNDERSTANDING OF AND WAS IN AGREEMENT WITH TREATMENT PLAN. GIVEN TIME TO ASK QUESTIONS AND EXPRESS CONCERNS. PROCEDURE CODES FA211 ESTABILISHED PATIENT [facility]AC[facility] CHARGE DISPOSITION & COMMUNICATION FOLLOW UP 2 MONTHS (REASON: BACK PAIN) ELECTRONICALLY SIGNED BY ALEXIA HOLLIS ON 10/07/2019 AT 08:50 AM EST DISCLAIMER : THIS IS A VISIT SUMMARY EXTRACTED FROM THE [employer] CHART. IT IS NOT A COPY OF THE [employer] PROGRESS NOTE. MAMI
== END ==
LOC: M PAIN 13:00
PROVIDERS: ATTEND Family Medicine
DX: M79.18 Myalgia, other site (principal); I10 Essential (primary) hypertension; E78.5 Hyperlipidemia, unspecified; R73.01 Impaired fasting glucose; Z87.891 Personal history of nicotine dependence; Z91.018 Allergy to other foods; Z79.84 Long term (current) use of oral hypoglycemic drugs; Z79.899 Other long term (current) drug therapy

== ENCOUNTER → 2019-12-14 | Outpatient (CLI) | payer OTHER ==
--- NOTE | 2019-12-16 00:18 | ECWPNPC ---
PATIENT NAME: CHIKIS ZIMMER : 1960 GENDER: MALE VISIT DATE: 12/14/2019 DISCHARGE DATE: 12/14/19 1153 VISIT LOCKED DATE TIME: PHYSICIAN: TAYLOR DAVILA RESOURCE: TAYLOR DAVILA REASON FOR APPOINTMENT 1. 2 MONTH [phone] HISTORY OF PRESENT ILLNESS HISTORY OF PRESENT ILLNESS: PAIN THE PATIENT DESCRIBES THE PAINDURING THE LAST MONTH SEVERITY - PAIN SCORE OF3/10 LOCATIONSLEFT HIP QUALITYACHING DURATIONCONTINUOUS, CONSTANT, ALL DAY, AWAKENS FROM SLEEEP PAIN IS INCREASED BY:ACTIVITIES PERMISSION REQUESTED AND RECEIVED FROM PATIENT TO PERFORM TELL VISIT. 59-YEAR-OLD MALE IN FOR CHRONIC PAIN FOLLOW-UP. 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 HE RATES HIS PAIN CURRENTLY AT A 3 OUT OF 10 AND DESCRIBES IT ACHING. FALL RISK SCREENING: SCREENING :NO FALLS REPORTED IN THE LAST YEAR CURRENT MEDICATIONS TAKING FISH OIL 1200 MG CAPSULE 1 CAPSULE ORALLY ONCE A DAY TAKING BACLOFEN 10 MG TABLET 2 TABLET WITH FOOD OR MILK ORALLY THREE TIMES A DAY TAKING ACETAMINOPHEN ER 650 MG TABLET EXTENDED RELEASE 2 TABLETS NEEDED ORALLY EVERY 8 HRS TAKING GABAPENTIN 100 MG CAPSULE 2 CAPSULE ORALLY BID TAKING ATORVASTATIN CALCIUM 40 MG TABLET 1 TABLET ORALLY ONCE A DAY TAKING FOSINOPRIL SODIUM 20 MG TABLET 1 TABLET ORALLY ONCE A DAY TAKING METFORMIN HCL 500 MG TABLET 1 TABLET WITH MEALS ORALLY TWICE A DAY MEDICATION LIST REVIEWED AND RECONCILED WITH THE PATIENT PAST MEDICAL HISTORY HTN HYPERLIPIDEMIA IMPAIRED FASTING GLUCOSE DEGENERATIVE DISC DISEASE, LUMBAR SPINE SEASONAL ALLERGIES ALLERGIES MUSHROOMS : LETHARGIC, FAINTS - SIDE EFFECTS LEMON SCENTED RAID SURGICAL HISTORY RIGHT ARM 2007 RIGHT FOOT/RIGHT HEEL 2007 HERNIA REPAIR 1994 COLONOSCOPY NEG. 2013 DENTAL EXTRACTIONS ANGIOGRAM HEART 1997 FAMILY HISTORY FATHER: , DIAGNOSED WITH HYPERTENSION, UNSPECIFIED HEART DISEASE MOTHER: ALIVE, HYPERTENSION SIBLINGS: ALIVE 3 BROTHER(S) , 1 SISTER(S) . 2 BROTHER HAS HEART ATTACK\\\/STROKE\\NNO CHILDREN. SOCIAL HISTORY GENERAL: TOBACCO USE ARE YOU A:FORMER SMOKER HOW LONG HAS IT BEEN SINCE YOU LAST SMOKED?1-5 YEARS HIV / HEP-C SCREENING HIV TEST OFFERED TO PATIENT:YES DATE OFFERED:12/31/2017 TEST ACCEPTED:NO HEP-C TEST OFFERED TO PATIENT:YES DATE OFFERED:12/31/2017 REASON:PATIENT DECLINED TEST ACCEPTED:NO REASON:PATIENT DECLINED BROCHURE PROVIDED TO PATIENTYES OTHERS AT HOME: SPOUSE. EDUCATION LEVEL OF EDUCATION:FINISHED HIGH SCHOOL GED DIET: REGULAR. LANGUAGE LANGUAGES SPOKEN:[place] DOMESTIC VIOLENCE STATUS: NEW PATIENT PAIN DIARY PATIENT DESCRIBES PAIN :HAVE IT ALL THE TIME, STABBING FROM 0-10, WHAT LEVEL IS YOUR PAIN TODAY?5 PRECIPITATING FACTORS ACTIVITY ALLEVIATING FACTORS REST IMPACT ON FUNCTION YES RECREATIONAL DRUG USE DRUG USE?YES PT USES MARIJUANA ABOUT 1-2 TIMES WEEKLY EXERCISE: NO REGULAR EXERCISE. 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 VISION IMPAIRED?YES COGNITIVELY IMPAIRED?NO :CORRECTIVE LENSES READING GLASSES READINESS TO LEARN?YES LEARNING PREFERENCES?YES :HANDOUTS LEARNING CAPABILITIES PRESENT?YES EMOTIONAL BARRIERS?NO SPECIAL DEVICES?NO WRITING TUTOR NEEDED?NO PAIN CLINIC PFS, CLERGY, PUBLIC HEALTH REFERRALS HAS THE PATIENT BEEN EDUCATED REGARDING HIS/HER PLAN OF CARE?YES HAS THE PATIENT BEEN EDUCATED REGARDING PAIN, THE RISK FOR PAIN, THE IMPORTANCE OF EFFECTIVE PAIN MANAGEMENT, AND THE PAIN ASSESSMENT PROCESS?YES LATEX QUESTIONNAIRE LATEX ALLERGY : HAVE YOU EVER DEVELOPED ANY TYPE OF REACTION AFTER HANDLING LATEX PRODUCTS SUCH RUBBER GLOVES, CONDOMS, DIAPHRAGMS, BALLOONS, SOCKS, OR UNDERWEAR?NO LATEX ALLERGY : HAVE YOU EVER DEVELOPED ANY TYPE OF REACTION DURING OR AFTER DENTAL APPOINTMENT, VAGINAL/RECTAL EXAMINATION, SURGICAL PROCEDURE, OR ANY OTHER EXPOSURE?NO DATE ASKED : 06/09/2019 LATEX RISK : HAVE YOU EVER HAD ANY DIFFICULTY BREATHING OR HIVES AFTER EATING OR HANDLING ANY FRUITS, OR VEGETABLES; SUCH KIWI, BANANAS, STONE FRUITS, OR CHESTNUTSNO LATEX RISK : DO YOU HAVE A PREVIOUS PERSONAL HISTORY OF MORE THAN NINE SURGERIES, SPINA BIFIDA, OR REPEATED CATHERIZATIONS? NO LATEX RISK : ARE YOU FREQUENTLY EXPOSED TO LATEX PRODUCTS IN YOUR OCCUPATION?NO CAFFEINE CAFFEINE USE?YES COFFEE AND SODA ADVANCE DIRECTIVE ADVANCE DIRECTIVE DISCUSSED WITH PATIENT:YES PT STATES HCP IS GÓMEZ ZIMMER, AMISH [id number] NONE NO JAIN BELIEFS THAT WOULD IMPACT HEALTH CARE. MARITAL STATUS: . ALCOHOL SCREENING DID YOU HAVE A DRINK CONTAINING ALCOHOL IN THE PAST YEAR?NO POINTS0 INTERPRETATIONNEGATIVE OCCUPATION: DISABLED. SEXUAL HX HAD SEX IN THE LAST 12 MONTHS (VAGINAL, ORAL, OR ANAL)?YES WITHWOMEN ONLY PREVENTION STRATEGIES DISCUSSED:OTHER USE PROTECTION?NO HAVE YOU EVER HAD AN STD?NO HOSPITALIZATION/MAJOR DIAGNOSTIC PROCEDURE SURGERY RELATED 2007 REVIEW OF SYSTEMS REVIEWED BY: PROVIDER: ABDOULAYE DAVILA THEATRICAL SCENIC DESIGNER-C . CONSTITUTIONAL: ANY CHANGE IN YOUR MEDICAL CONDITION? NO . CHILLS NO . FEVER NO . INFECTION: DO YOU HAVE NEW INFECTIONS? NO . DO YOU HAVE HISTORY OF MRSA? NO . MUSCULOSKELETAL: ANY NEW PATTERNS OF PAIN OR NUMBNESS? NO . GASTROENTEROLOGY: ANY NEW CHANGE IN BOWEL CONTROL? NO . GENITOURINARY: ANY NEW CHANGE IN BLADDER CONTROL? NO . IS THERE A CHANCE YOU COULD BE ? NO . HEMATOLOGY/LYMPH: DO YOU TAKE ANY BLOOD THINNERS? (FOR EXAMPLE- COUMADIN, PLAVIX, AGGRENOX, PLATEL, PRADAXA, OR XARELTO) NO . WHEN WAS YOUR LAST DOSE? DATE: TIME: . NEUROLOGY: HAVE YOU FALLEN IN THE PAST 12 MONTHS? NO . ANY NEW EXTREMITY NUMBNESS OR WEAKNESS? NO . CARDIOLOGY: DO YOU HAVE A PACEMAKER OR DEFIBRILLATOR? NO . RESPIRATORY: HAVE YOU BEEN SICK IN THE PAST WEEK? NO . FEVER NO . FLU LIKE SYMPTOMS? NO . COUGH NO . INTEGUMENTARY: DO YOU HAVE ANY RASHES OR OPEN SORES? NO . ALLERGIC/IMMUNO: ARE YOU ALLERGIC TO IV DYE? NO . ANY NEW ALLERGIES? NO . PSYCHIATRIC: DO YOU HAVE THOUGHTS OF HURTING YOURSELF OR SOMEONE ELSE? NO . ARE YOU ABUSED, NEGLECTED, OR IN AN UNSAFE ENVIRONMENT? NO . ENDOCRINOLOGY: ARE YOU DIABETIC? YES, BORDER[facility] DIABETIC . OTHER: DO YOU NEED ANY PRESCRIPTIONS? NO . IF YES, PLEASE LIST: ____ . ANY NEW PROBLEMS WITH YOUR MEDICATIONS? NO . WHEN DID YOU LAST EAT? ____ . WHEN DID YOU LAST DRINK? ____ . WHAT DID YOU LAST DRINK? ____ . NAME OF PERSON DRIVING YOU HOME? ____ . DO YOU HAVE ANY OTHER QUESTIONS OR CONCERNS NO . EXAMINATION GENERAL EXAMINATION: GENERALNO ACUTE DISTRESS, WELL NOURISHED AND HYDRATED. PSYCHAPPROPRIATE MOOD AND AFFECT , ORIENTED X 3. ASSESSMENTS MYALGIA, OTHER SITE - M79.18 (PRIMARY) TREATMENT MYALGIA, OTHER SITE CLINICAL NOTES: 59-YEAR-OLD MALE IN FOR CHRONIC PAIN FOLLOW-UP. GIVEN PRESENTING SYMPTOMS RECOMMEND FOLLOW-UP IN 2 MONTHS. DISCUSSED HIP PAIN WITH PATIENT AND ENCOURAGED HIM TO DISCUSS THIS WITH HIS PCP FURTHER. PATIENT HAS EXPRESSED UNDERSTANDING OF AND WAS IN AGREEMENT WITH TREATMENT PLAN. GIVEN TIME TO ASK QUESTIONS AND EXPRESS CONCERNS.TELEHEALTH VISIT PERFORMED VIA ZO[employer]. TIME SPENT WITH PATIENT 7 MINUTES. DISPOSITION & COMMUNICATION FOLLOW UP 2 MONTHS (REASON: BACK PAIN) ELECTRONICALLY SIGNED BY ALEXIA HOLLIS ON 12/15/2019 AT 09:19 AM EDT DISCLAIMER : THIS IS A VISIT SUMMARY EXTRACTED FROM THE [facility] CHART. IT IS NOT A COPY OF THE [facility] PROGRESS NOTE. MAMI
== END ==
LOC: M PAIN 10:15
PROVIDERS: ATTEND Family Medicine
DX: M79.18 Myalgia, other site (principal)

== ENCOUNTER → 2020-01-12 | Outpatient (CLI) | payer OTHER ==
--- NOTE | 2020-01-13 02:18 | REPPI ---
Clinical: Left-sided sciatica. Technique: Frontal view of the pelvis and Internal rotation, external rotation of the left hip. Findings: Generalized age-related changes are noted including very subtle increase sclerosis to the acetabular roof with minimal joint space narrowing. No further overt osteoarthritic degenerative changes are appreciated. No evidence for acute fracture or dislocation. Small sclerotic focus in the superior aspect of the right acetabulum consistent with bone island and confirmed on prior CT. Impression: Generalized age-related changes. No overt osteoarthritic findings. No evidence for acute fracture or dislocation. Electronically Signed by Darren Morales MD 01/13/2020 02:09 A
--- NOTE | 2020-01-13 02:19 | REPPI ---
Clinical: Left-sided sciatica. Chest pain . Comparison: None . Technique: PA and lateral. Findings: The mediastinum and cardiac silhouette are normal. The lung koehler are clear and without acute consolidation, effusion, or pneumothorax. The skeletal structures are intact and normal. Impression: 1. No acute cardiopulmonary process. Electronically Signed by Darren Morales MD 01/13/2020 02:10 A
--- NOTE | 2020-01-13 02:20 | REPPI ---
Clinical: Left-sided sciatica. Technique: AP, lateral, bilateral oblique and coned-down views of the lumbosacral spine. Findings: Alignment is maintained. Advanced multilevel degenerative changes include osteophytosis, endplate sclerosis, disc space narrowing, and hypertrophic facet changes. No acute fracture / compression injury or subluxation. No obvious spondylolysis or spondylolisthesis. Atherosclerotic disease to the thoracic aorta noted. Impression: Advanced multilevel degenerative spondylosis. Electronically Signed by Darren Morales MD 01/13/2020 02:12 A
--- NOTE | 2020-01-13 02:26 | REPPI ---
Clinical: Left-sided thoracic back pain. Technique: AP, lateral, and swimmers views. Findings: Alignment and kyphosis is maintained. Vertebral bodies intact and there is no evidence for acute fracture / compression injury or subluxation. Moderate age-related osteopenia and multilevel degenerative changes include minimal endplate sclerosis with subtle disc space narrowing and early marginal osteophytosis. Impression: Osteopenia and mild multilevel age-related degenerative changes. Electronically Signed by Darren Morales MD 01/13/2020 02:17 A
== END ==
LOC: M PLAIMG 14:02
PROVIDERS: ATTEND Physician Assistant Medical
DX: M16.12 Unilateral primary osteoarthritis, left hip (principal); M51.37 Other intervertebral disc degeneration, lumbosacral region; M25.78 Osteophyte, vertebrae; M85.88 Other specified disorders of bone density and structure, other site; M54.42 Lumbago with sciatica, left side; R73.01 Impaired fasting glucose; R07.1 Chest pain on breathing; I10 Essential (primary) hypertension; Z13.220 Encounter for screening for lipoid disorders; J30.2 Other seasonal allergic rhinitis; R63.4 Abnormal weight loss
CPT/HCPCS: 36415; 71046; 72070; 72110; 73502; 80053; 80061; 82107; 82378; 82550; 82553; 83036; 84484; 85025; 86140; 86301; G0463

== ENCOUNTER → 2020-01-12 | Outpatient (REF) | payer OTHER ==
[2020-01-12 15:38] LABS: EOS % 1.8 % (0.0-3.0); HEMATOCRIT 44.9 % (42.0-52.0); HEMOGLOBIN 14.4 g/dl (13.5-17.5); LYMPH % 22.3 % (24.0-44.0); MEAN CORPUSCULAR HEMOGLOBIN 29.5 pg (27.0-33.0); MEAN CORPUSCULAR HGB CONC 32.1 g/dl (32.0-36.5); MONO % 5.8 % (0.0-5.0); NEUTROPHILS % 69.4 % (36.0-66.0); PLATELET COUNT, AUTOMATED 185 10^3/uL (150-450); RED BLOOD COUNT 4.88 10^6/uL (4.30-6.10); WHITE BLOOD COUNT 6.7 10^3/uL (4.0-10.0)
[2020-01-12 15:39] LABS: BASO % 0.4 % (0.0-1.0); EOS # 0.1 10^3/uL (0.0-0.5); LYMPH # 1.5 10^3/uL (1.5-5.0); MONO # 0.4 10^3/uL (0.0-0.8); NEUTROPHILS # 4.6 10^3/uL (1.5-8.5)
[2020-01-12 16:00] LABS: ALT/SGPT 36 U/L (12-78); BILIRUBIN,TOTAL 0.6 MG/DL (0.2-1.0); BLOOD UREA NITROGEN 13 MG/DL (7-18); CALCIUM LEVEL 9.2 MG/DL (8.8-10.2); CARBON DIOXIDE LEVEL 30 MEQ/L (21-32); CHLORIDE LEVEL 107 MEQ/L (98-107); CHOLESTEROL LEVEL 141 MG/DL (<200); CHOLESTEROL RISK RATIO 4.272 (<5); CK-MB VALUE MASS 2.2 NG/ML (<3.6); CPK CREATINE PHOSPHOKINASE 110 U/L (39-308); CREATININE FOR GFR 0.92 MG/DL (0.70-1.30); GLOMERULAR FILTRATION RATE > 60.0 (>49); GLUCOSE, FASTING 77 MG/DL (70-100); HDL CHOLESTEROL 33 MG/DL (>40); LDL CHOLESTEROL 70 MG/DL (<100); NON-HDL-C 108 MG/DL; SODIUM LEVEL 139 MEQ/L (136-145); TOTAL PROTEIN 7.4 GM/DL (6.4-8.2); TRIGLYCERIDES LEVEL 190 MG/DL (<150); TROPONIN I < 0.02 NG/ML (< 0.10)
[2020-01-12 16:16] LABS: HEMOGLOBIN A1c 5.5 %
[2020-01-13 18:08] LABS: C REACTIVE PROTEIN QUANTITATIV 0.58 MG/DL (0.00-0.30)
[2020-01-14 11:36] LABS: CA19-9 TUMOR MARKER,CARBOHYDRA 9.5 U/ML (<35.0)
== END ==
LOC: M SFHCPLAZ 14:00
PROVIDERS: ATTEND Physician Assistant Medical
DX: R07.1 Chest pain on breathing (principal); R73.01 Impaired fasting glucose; I10 Essential (primary) hypertension; Z13.220 Encounter for screening for lipoid disorders; J30.2 Other seasonal allergic rhinitis; R63.4 Abnormal weight loss

== ENCOUNTER → 2020-02-18 | Outpatient (CLI) | payer OTHER ==
--- NOTE | 2020-02-19 07:51 | REP ---
REASON FOR EXAM: Weight loss. The lack of intravenous contrast significantly decreases the sensitivity of the exam. The right hilum appears full, however, I cannot accurately assess for adenopathy without intravenous contrast. There is no evidence of left hilar adenopathy or mediastinal adenopathy. There are no pleural or pericardial effusions. The imaged upper abdomen shows diffuse fatty infiltration of the pancreas and bilateral low density adrenal gland thickening. The imaged osseous structures are within normal limits for the patient's age. Evaluation of the lung koehler shows evidence of biapical pleuroparenchymal scarring and small pleural blebs. Bibasilar curvilinear densities are noted with ground-glass opacities. No abnormal nodules are present. IMPRESSION: 1. Right hilar adenopathy cannot be accurately assessed for. Contrast-enhanced chest CT should be considered for further evaluation. 2. There are chronic lung field changes seen in the lung apical regions, as described above. There is no revised Fleischner Society criteria on the recommendation for followup of such chronic-appearing changes. Since there are no priors for comparison, I would recommend a 3-month followup. 3. There are some bibasilar opacities, as described above. When compared to lung base images obtained during abdominal and pelvic CT scanning of 07/02/2019, these opacities are essentially unchanged, likely representing chronic fibrotic and/or subsegmental atelectatic changes. Electronically Signed by Deonte Yang DO 02/21/2020 07:43 A
--- NOTE | 2020-02-19 07:55 | REP ---
CT ABDOMEN AND PELVIS WITHOUT IV OR ORAL CONTRAST: HISTORY: Abnormal weight loss. Comparison CT study, July 02, 2019. CT FINDINGS: Digital preliminary field instructor radiograph demonstrates an unremarkable bowel gas pattern. The liver and the spleen are normal in size, homogeneous in texture. Liver size is borderline with a Tessy lobe type configuration and a 21 cm craniocaudal span of the right lobe. No focal hepatic lesion is seen. No evidence of splenic mass. There is mild hyperplasia of the adrenal glands, unchanged from comparison study. No abnormalities noted in the pancreas. The gallbladder is small and contracted and unremarkable. No retroperitoneal mass or adenopathy is observed. There is extensive vascular calcification in a normal caliber aorta. Right renal atrophy is observed. The 8 mm nodule or peripheral cyst previously described in the lower pole of the right kidney is again seen, unchanged. Small and large intestinal bowel loops are unremarkable in the abdomen and pelvis. Seminal vesicles and prostate are unremarkable. Urinary bladder is intact. The appendix is not confidently identified, but there are no inflammatory changes or mass-like changes. There is some left colonic diverticulosis without CT evidence of diverticulitis. No abdominal wall defect is seen. No bony destructive lesion is observed. IMPRESSION: Borderline liver size, unchanged. Right renal atrophy, unchanged. Left colonic diverticulosis. No acute abdominal or pelvic abnormality. Electronically Signed by Trell Pappas MD 02/19/2020 08:19 A
== END ==
LOC: M RAD 15:58
PROVIDERS: ATTEND Physician Assistant Medical
DX: R63.4 Abnormal weight loss (principal)

== ENCOUNTER → 2020-07-05 | Outpatient (CLI) | payer OTHER ==
[~2020-07-05] MED LIST changes: -BUPIVACAINE HCL 0.25% 30 ML VIAL As Ordered ONE; +ISOVUE-370 76% 100ML VIAL As Ordered ONE; -TRIAMCINOLONE ACETONIDE SUSP 40 MG/ML VIAL (J3301) As Ordered ONE
--- NOTE | 2020-07-05 16:31 | REP ---
INDICATION: ABN IMAGING FINDINGS IN LUNG FIELD FILE ROOM. COMPARISON: 02/18/2020 TECHNIQUE: Bolus 100 mL Isovue 370 scanning through the chest with coronal and sagittal reconstructions. FINDINGS: Study again shows minimal apical a pleuroparenchymal scarring, stable. Some minor dependent atelectatic changes in the deep sulci of both lower lung zones no other of pleural or parenchymal findings. No nodule or mass. Heart size is not enlarged there is no pericardial thickening or effusion the aorta has atherosclerotic calcifications but no aneurysm or dissection. Main right and left pulmonary arteries are without filling defects there is some prominence of the right hilum suggested in the noncontrast CT but this is all proved to be vascular without adenopathy or mass. No pathologic sized adenopathy in the mediastinum or either letty. Normal size nodes are seen in the left hilum AP window and prevascular space. Tracheal airway grossly intact. No axillary or supraclavicular mass. Bone windows show sternum, manubrium, visible clavicles scapulae and humeral heads grossly intact. Those ribs included were unremarkable. The spine shows age-appropriate marginal osteophytes throughout. No compression deformity or destructive lesion. The upper abdomen shows no hiatal hernia. Adrenal glands show some mild thickening that may reflect some adrenal hyperplasia. Fatty infiltration of the liver is again noted. Only a portion of the gallbladder seen which is unremarkable. Fatty replacement of the pancreas again seen in the body and head region. No mass. IMPRESSION: Stable bilateral apical pleuroparenchymal scarring. Fullness of the right hilum is proven to be confluence of vascular shadows on the contrast CT there is no mediastinal, hilar axillary or other adenopathy visible. No other significant finding. Stable exam. No follow-up needed unless symptomatic. <Electronically signed by Vinicius Tobin > 07/05/20 [id number]
== END ==
LOC: M RAD 13:39
PROVIDERS: ATTEND Physician Assistant Medical
DX: R91.8 Other nonspecific abnormal finding of lung field (principal)
CPT/HCPCS: 71260; Q9967

== ENCOUNTER → 2021-01-23 | Outpatient (REF) | payer OTHER ==
[2021-01-23 15:42] LABS: BASO # 0.1 10^3/uL (0.0-0.2); BASO % 0.6 % (0.0-1.0); EOS # 0.2 10^3/uL (0.0-0.5); EOS % 1.9 % (0.0-3.0); HEMOGLOBIN 14.9 g/dl (13.5-17.5); LYMPH # 1.6 10^3/uL (1.5-5.0); MEAN CORPUSCULAR HEMOGLOBIN 29.3 pg (27.0-33.0); MEAN CORPUSCULAR HGB CONC 32.4 g/dl (32.0-36.5); MEAN CORPUSCULAR VOLUME 90.6 fl (80.0-96.0); MONO # 0.6 10^3/uL (0.0-0.8); MONO % 8.3 % (2.0-8.0); NEUTROPHILS # 5.3 10^3/uL (1.5-8.5); NEUTROPHILS % 68.9 % (36.0-66.0); RED BLOOD COUNT 5.08 10^6/uL (4.30-6.10); WHITE BLOOD COUNT 7.8 10^3/uL (4.0-10.0)
[2021-01-23 16:09] LABS: ALBUMIN 4.3 GM/DL (3.2-5.2); ALT/SGPT 42 U/L (12-78); BILIRUBIN,TOTAL 0.7 MG/DL (0.2-1.0); BLOOD UREA NITROGEN 12 MG/DL (7-18); CALCIUM LEVEL 9.1 MG/DL (8.8-10.2); CARBON DIOXIDE LEVEL 28 MEQ/L (21-32); CHLORIDE LEVEL 105 MEQ/L (98-107); CHOLESTEROL LEVEL 151 MG/DL (<200); CHOLESTEROL RISK RATIO 4.194 (<5); CREATININE FOR GFR 1.02 MG/DL (0.70-1.30); FREE T4 0.79 NG/DL (0.76-1.46); GLOMERULAR FILTRATION RATE > 60.0 (>49); GLUCOSE, FASTING 99 MG/DL (70-100); HDL CHOLESTEROL 36 MG/DL (>40); LDL CHOLESTEROL 65 MG/DL (<100); NON-HDL-C 115 MG/DL; POTASSIUM SERUM 4.8 MEQ/L (3.5-5.1); SODIUM LEVEL 139 MEQ/L (136-145); THYROID STIMULATING HORMONE 0.804 uIU/ML (0.358-3.740); TOTAL PROTEIN 7.8 GM/DL (6.4-8.2); TRIGLYCERIDES LEVEL 250 MG/DL (<150)
[2021-01-23 16:33] LABS: HEMOGLOBIN A1c 5.5 %
[2021-01-24 09:58] LABS: TOTAL PROTEIN 7.8 GM/DL (6.4-8.2)
[2021-01-24 15:10] LABS: ALBUMIN 4.66 GM/DL (3.29-5.55); ALBUMIN % 59.8 % (55.8-66.1); ALPHA-1-GLOBULIN % 4.3 % (2.9-4.9); ALPHA-1-GLOBULINS 0.34 GM/DL (0.17-0.41); ALPHA-2-GLOBULINS 0.83 GM/DL (0.42-0.99); ALPHA-2-GLOBULINS % 10.6 % (7.1-11.8); BETA-1-GLOBULINS 0.44 GM/DL (0.28-0.60); BETA-1-GLOBULINS % 5.7 % (4.7-7.2); BETA-2-GLOBULINS 0.39 GM/DL (0.19-0.55); GAMMA GLOBULIN % 14.6 % (11.1-18.8); GAMMA GLOBULINS 1.14 GM/DL (0.65-1.58)
== END ==
LOC: M SFHCPLAZ 13:46
PROVIDERS: ATTEND Physician Assistant Medical
DX: R73.01 Impaired fasting glucose (principal); I10 Essential (primary) hypertension; E87.5 Hyperkalemia; R63.4 Abnormal weight loss; Z13.220 Encounter for screening for lipoid disorders
CPT/HCPCS: 36415; 80053; 80061; 83036; 84165; 84439; 84443; 85025; G0463

== ENCOUNTER → 2021-02-16 | Outpatient (CLI) | payer OTHER ==
--- NOTE | 2021-02-16 16:40 | DEXAMM ---
INDICATION: OSTEOPENIA OF LUMBAR SPINE. COMPARISON: None. TECHNIQUE: Bone density was measured using dual-energy x-ray absorptiometry (DEXA). FINDINGS: AP SPINE L1-L4 BMD 1.380 g/cm2 Young Adult T-Score 1.5 Age Matched Z-Score 1.6. LT FEMUR, TOTAL BMD 0.886 g/cm2 Young Adult T-Score -1.0 Age Matched Z-Score -1.0. LT NECK BMD 0.933 g/cm2 Young Adult T-Score -0.8 Age Matched Z-Score 0.0. RT FEMUR, TOTAL BMD 0.915 g/cm2 Young Adult T-Score -0.7 Age Matched Z-Score -0.8. RT NECK BMD 0.904 g/cm2 Young Adult T-Score -1.0 Age Matched Z-Score -0.3. IMPRESSION: There is normal bone density of the spine. There is normal bone density of the left hip. There is low bone density of the right hip. FOLLOW-UP: Recommendation for the next bone density exam: 2 years. <Electronically signed by Amadeo Dominguez > 02/16/21 [id number]
== END ==
LOC: M WHC 13:29
PROVIDERS: ATTEND Physician Assistant Medical
DX: M85.851 Other specified disorders of bone density and structure, right thigh (principal)

== ENCOUNTER → 2021-03-06 | Outpatient (CLI) | payer OTHER | LOC: M PLALAB 14:30 | PROVIDERS: ATTEND Physician Assistant Medical | DX: R63.4 Abnormal weight loss (principal) | CPT/HCPCS: 88108; G0463 ==

== ENCOUNTER 2021-04-09 20:38 | Emergency (ER) | payer OTHER ==
[~2021-04-09] VITALS: Ht 180.3 cm; Wt 96.5 kg
[2021-04-09 20:39] VITALS: BP 171/81
== END 2021-04-10 01:45 | disposition left against medical advice (07) ==
LOC: M ED 20:38
DX: Z53.21 Procedure and treatment not carried out due to patient leaving prior to being seen by health care provider (principal)

== ENCOUNTER → 2021-07-09 | Outpatient (CLI) | payer OTHER ==
[2021-07-09 15:36] LABS: BASO % 0.4 % (0.0-1.0); EOS # 0.2 10^3/uL (0.0-0.5); HEMOGLOBIN 14.5 g/dl (13.5-17.5); LYMPH # 2.4 10^3/uL (1.5-5.0); LYMPH % 32.7 % (24.0-44.0); MEAN CORPUSCULAR HEMOGLOBIN 29.7 pg (27.0-33.0); MONO # 0.6 10^3/uL (0.0-0.8); MONO % 8.5 % (2.0-8.0); NEUTROPHILS # 4.1 10^3/uL (1.5-8.5); NEUTROPHILS % 55.1 % (36.0-66.0); PLATELET COUNT, AUTOMATED 176 10^3/uL (150-450); RED BLOOD COUNT 4.89 10^6/uL (4.30-6.10); WHITE BLOOD COUNT 7.4 10^3/uL (4.0-10.0)
[2021-07-09 16:02] LABS: ALT/SGPT 61 U/L (12-78); BILIRUBIN,TOTAL 0.6 MG/DL (0.2-1.0); BLOOD UREA NITROGEN 13 MG/DL (7-18); CALCIUM LEVEL 9.3 MG/DL (8.8-10.2); CARBON DIOXIDE LEVEL 29 MEQ/L (21-32); CHLORIDE LEVEL 103 MEQ/L (98-107); CREATININE FOR GFR 1.04 MG/DL (0.70-1.30); GLOMERULAR FILTRATION RATE > 60.0 (>49); GLUCOSE, FASTING 76 MG/DL (70-100); POTASSIUM SERUM 4.5 MEQ/L (3.5-5.1); SODIUM LEVEL 138 MEQ/L (136-145); TOTAL PROTEIN 7.3 GM/DL (6.4-8.2)
[2021-07-09 17:29] LABS: HEMOGLOBIN A1c 5.8 %
== END ==
LOC: M PLALAB 14:13
PROVIDERS: ATTEND Physician Assistant Medical
DX: R63.4 Abnormal weight loss (principal); I10 Essential (primary) hypertension; R94.5 Abnormal results of liver function studies; R73.01 Impaired fasting glucose
CPT/HCPCS: 36415; 80053; 83036; 85025; 88108; 90682; G0008; G0463

== ENCOUNTER → 2021-11-12 | Outpatient (REF) | payer OTHER ==
[2021-11-13 11:40] LABS: BASO % 0.5 % (0.0-1.0); EOS # 0.2 10^3/uL (0.0-0.5); EOS % 2.9 % (0.0-3.0); HEMATOCRIT 43.6 % (42.0-52.0); HEMOGLOBIN 14.4 g/dl (13.5-17.5); LYMPH # 1.5 10^3/uL (1.5-5.0); LYMPH % 24.2 % (24.0-44.0); MEAN CORPUSCULAR HEMOGLOBIN 29.2 pg (27.0-33.0); MEAN CORPUSCULAR VOLUME 88.4 fl (80.0-96.0); MONO # 0.5 10^3/uL (0.0-0.8); MONO % 8.5 % (2.0-8.0); NEUTROPHILS # 3.9 10^3/uL (1.5-8.5); NEUTROPHILS % 63.6 % (36.0-66.0); PLATELET COUNT, AUTOMATED 167 10^3/uL (150-450); RED BLOOD COUNT 4.93 10^6/uL (4.30-6.10); WHITE BLOOD COUNT 6.1 10^3/uL (4.0-10.0)
[2021-11-13 11:50] LABS: ALBUMIN 4.1 GM/DL (3.2-5.2); ALT/SGPT 61 U/L (12-78); BILIRUBIN,TOTAL 0.5 MG/DL (0.2-1.0); BLOOD UREA NITROGEN 15 MG/DL (7-18); CALCIUM LEVEL 9.1 MG/DL (8.8-10.2); CARBON DIOXIDE LEVEL 28 MEQ/L (21-32); CHLORIDE LEVEL 108 MEQ/L (98-107); CHOLESTEROL LEVEL 144 MG/DL (<200); CHOLESTEROL RISK RATIO 5.538 (<5); CREATININE FOR GFR 1.09 MG/DL (0.70-1.30); GLOMERULAR FILTRATION RATE > 60.0 (>49); GLUCOSE, FASTING 85 MG/DL (70-100); HDL CHOLESTEROL 26 MG/DL (>40); LDL CHOLESTEROL 56 MG/DL (<100); NON-HDL-C 118 MG/DL; POTASSIUM SERUM 4.4 MEQ/L (3.5-5.1); SODIUM LEVEL 141 MEQ/L (136-145); TOTAL PROTEIN 7.3 GM/DL (6.4-8.2); TRIGLYCERIDES LEVEL 309 MG/DL (<150)
[2021-11-13 12:49] LABS: HEMOGLOBIN A1c 6.1 %
== END ==
LOC: M SFHCPLAZ 13:53
PROVIDERS: ATTEND Physician Assistant Medical
DX: Z12.5 Encounter for screening for malignant neoplasm of prostate (principal); I10 Essential (primary) hypertension; R73.01 Impaired fasting glucose; E87.5 Hyperkalemia; E78.2 Mixed hyperlipidemia
CPT/HCPCS: 80053; 80061; 83036; 85025; G0103

== ENCOUNTER → 2022-07-28 | Outpatient (CLI) | payer OTHER ==
[~2022-07-28] MED LIST changes: +ACET-897 PO; +ATOR40TA75 PO; +FOSI20TA79 PO; +GABA-283 PO; -ISOVUE-370 76% 100ML VIAL As Ordered ONE
== END ==
LOC: M LABSMTC 11:17
PROVIDERS: ATTEND Anesthesiology
DX: Z20.828 Contact with and (suspected) exposure to other viral communicable diseases (principal); Z11.59 Encounter for screening for other viral diseases

== ENCOUNTER → 2022-08-14 | Outpatient (CLI) | payer OTHER ==
[2022-08-14 17:46] LABS: CHOLESTEROL RISK RATIO 4.98 (<5); HDL CHOLESTEROL 28.1 MG/DL (>40); LDL CHOLESTEROL 67.1 MG/DL (<100)
[2022-08-14 17:47] LABS: FREE T4 0.83 NG/DL (0.89-1.76); THYROID STIMULATING HORMONE 1.398 uIU/ML (0.55-4.78)
[2022-08-14 17:50] LABS: BASO % 0.2 % (0.0-1.0); EOS # 0.2 10^3/uL (0.0-0.5); EOS % 2.1 % (0.0-3.0); HEMATOCRIT 45.7 % (42.0-52.0); HEMOGLOBIN 14.4 g/dl (13.5-17.5); LYMPH # 2.2 10^3/uL (1.5-5.0); LYMPH % 26.4 % (24.0-44.0); MEAN CORPUSCULAR HEMOGLOBIN 29.1 pg (27.0-33.0); MEAN CORPUSCULAR HGB CONC 31.5 g/dl (32.0-36.5); MEAN CORPUSCULAR VOLUME 92.5 fl (80.0-96.0); MONO # 0.7 10^3/uL (0.0-0.8); MONO % 7.9 % (2.0-8.0); NEUTROPHILS # 5.3 10^3/uL (1.5-8.5); PLATELET COUNT, AUTOMATED 180 10^3/uL (150-450); RED BLOOD COUNT 4.94 10^6/uL (4.30-6.10); WHITE BLOOD COUNT 8.5 10^3/uL (4.0-10.0)
[2022-08-14 18:07] LABS: HEMOGLOBIN A1c 5.4 % (4.0-6.0)
== END ==
LOC: M PLALAB 14:06
PROVIDERS: ATTEND Physician Assistant Medical
DX: I10 Essential (primary) hypertension (principal); R73.01 Impaired fasting glucose; E66.9 Obesity, unspecified; E78.2 Mixed hyperlipidemia; Z68.30 Body mass index [BMI] 30.0-30.9, adult

== ENCOUNTER → 2023-11-13 | Outpatient (REF) | payer MEDICARE ==
[~2023-11-13] MED LIST changes: -GABA-283 PO; +GABA-284 PO
[2023-11-13 18:42] LABS: APPEARANCE, URINE CLEAR (CLEAR); BACTERIA, URINE AUTO NEGATIVE (NEGATIVE); BILIRUBIN, URINE AUTO NEGATIVE (NEGATIVE); BLOOD, URINE BLOOD NEGATIVE (NEGATIVE); COLOR, URINE YELLOW (YELLOW); GLUCOSE, URINE (UA) AUTO NEGATIVE (NEGATIVE); KETONE, URINE AUTO NEGATIVE (NEGATIVE); LEUKOCYTE ESTERASE, URINE AUTO NEGATIVE (NEGATIVE); MUCUS, URINE SMALL (NEGATIVE); NITRITE, URINE AUTO NEGATIVE (NEGATIVE); PROTEIN, URINE AUTO NEGATIVE (NEGATIVE); RBC, URINE AUTO 1 /HPF (0-3); SPECIFIC GRAVITY URINE AUTO 1.018 (1.002-1.035); SQUAMOUS EPITHELIAL CELL UR AU 0 /HPF (0-6); UROBILINOGEN, URINE AUTO 0.2 mg/dL (0.0-2.0); WBC, URINE AUTO 0 /HPF (0-3)
== END ==
LOC: M SFHCPLAZ 16:58
PROVIDERS: ATTEND Physician Assistant Medical
DX: R41.0 Disorientation, unspecified (principal)

== ENCOUNTER → 2023-11-14 | Outpatient (CLI) | payer MEDICARE, SELFPAY ==
[2023-11-14 13:13] LABS: BASO % 0.3 % (0.0-1.0); EOS # 0.1 10^3/uL (0.0-0.5); EOS % 1.4 % (0.0-3.0); HEMOGLOBIN 14.7 g/dl (13.5-17.5); LYMPH # 1.7 10^3/uL (1.5-5.0); LYMPH % 18.9 % (24.0-44.0); MEAN CORPUSCULAR HEMOGLOBIN 30.1 pg (27.0-33.0); MEAN CORPUSCULAR HGB CONC 32.7 g/dl (32.0-36.5); MEAN CORPUSCULAR VOLUME 92.2 fl (80.0-96.0); MONO # 0.5 10^3/uL (0.0-0.8); NEUTROPHILS # 6.6 10^3/uL (1.5-8.5); NEUTROPHILS % 73.2 % (36.0-66.0); PLATELET COUNT, AUTOMATED 181 10^3/uL (150-450); RED BLOOD COUNT 4.88 10^6/uL (4.30-6.10)
[2023-11-14 13:42] LABS: CK-MB VALUE MASS 5.5 NG/ML (<3.6)
[2023-11-14 13:45] LABS: ALBUMIN 4.4 G/DL (3.2-5.2); ALKALINE PHOSPHATASE 103 U/L (46-116); ALT/SGPT 19 U/L (7.0-40); AST/SGOT 15 U/L (<34); BILIRUBIN,TOTAL 0.4 MG/DL (0.3-1.2); BLOOD UREA NITROGEN 19 MG/DL (9-23); CALCIUM LEVEL 9.8 MG/DL (8.3-10.6); CARBON DIOXIDE LEVEL 31 MMOL/L (20-31); CHLORIDE LEVEL 107 MMOL/L (98-107); CREATININE FOR GFR 0.95 MG/DL (0.70-1.30); GLOMERULAR FILTRATION RATE > 60.0 (>49); GLUCOSE, FASTING 130 MG/DL (74-106); POTASSIUM SERUM 5.6 MMOL/L (3.5-5.1); SODIUM LEVEL 141 MMOL/L (136-145); TOTAL PROTEIN 7.7 G/DL (5.7-8.2)
[2023-11-14 13:46] LABS: THYROID STIMULATING HORMONE 0.824 uIU/ML (0.55-4.78)
[2023-11-14 13:47] LABS: FREE T4 1.02 NG/DL (0.89-1.76); VITAMIN B12 LEVEL 324 PG/ML (211-911)
[2023-11-14 13:48] LABS: CPK CREATINE PHOSPHOKINASE 158 U/L (46-171); MB/CK RELATIVE INDEX 3.48 (< OR =4)
== END ==
LOC: M PLAIMG 10:40
PROVIDERS: ATTEND Physician Assistant Medical
DX: R41.0 Disorientation, unspecified (principal); R89.2 Abnormal level of other drugs, medicaments and biological substances in specimens from other organs, systems and tissues; R07.1 Chest pain on breathing; I10 Essential (primary) hypertension; E78.5 Hyperlipidemia, unspecified

== ENCOUNTER → 2023-11-14 | Outpatient (REF) | payer MEDICARE | LOC: M SFHCPLAZ 17:01 | PROVIDERS: ATTEND Physician Assistant Medical | DX: R89.2 Abnormal level of other drugs, medicaments and biological substances in specimens from other organs, systems and tissues (principal); I10 Essential (primary) hypertension; R07.1 Chest pain on breathing; R41.0 Disorientation, unspecified; E87.5 Hyperkalemia ==

== ENCOUNTER → 2023-11-27 | Outpatient (CLI) | payer MEDICARE, SELFPAY ==
[2023-11-27 13:43] LABS: BASO % 0.1 % (0.0-1.0); EOS % 0.1 % (0.0-3.0); HEMATOCRIT 46.4 % (42.0-52.0); HEMOGLOBIN 15.1 g/dl (13.5-17.5); LYMPH # 0.3 10^3/uL (1.5-5.0); LYMPH % 1.8 % (24.0-44.0); MEAN CORPUSCULAR HEMOGLOBIN 29.5 pg (27.0-33.0); MEAN CORPUSCULAR HGB CONC 32.5 g/dl (32.0-36.5); MEAN CORPUSCULAR VOLUME 90.8 fl (80.0-96.0); MONO # 0.5 10^3/uL (0.0-0.8); MONO % 3.4 % (2.0-8.0); NEUTROPHILS # 12.8 10^3/uL (1.5-8.5); PLATELET COUNT, AUTOMATED 178 10^3/uL (150-450); RED BLOOD COUNT 5.11 10^6/uL (4.30-6.10); WHITE BLOOD COUNT 13.6 10^3/uL (4.0-10.0)
[2023-11-27 14:03] LABS: ERYTHROCYTE SEDIMENTATION RATE 22 mm/hr (0-20)
[2023-11-27 14:13] LABS: LIPASE 20 U/L (12-53)
[2023-11-27 14:22] LABS: ALBUMIN 4.1 G/DL (3.2-5.2); ALKALINE PHOSPHATASE 104 U/L (46-116); ALT/SGPT 20 U/L (7.0-40); AST/SGOT 14 U/L (<34); BILIRUBIN,TOTAL 0.8 MG/DL (0.3-1.2); BLOOD UREA NITROGEN 21 MG/DL (9-23); CALCIUM LEVEL 9.1 MG/DL (8.3-10.6); CARBON DIOXIDE LEVEL 28 MMOL/L (20-31); CHLORIDE LEVEL 103 MMOL/L (98-107); CHOLESTEROL LEVEL 206 MG/DL (<200); CHOLESTEROL RISK RATIO 5.52 (<5); GLOMERULAR FILTRATION RATE > 60.0 (>49); GLUCOSE, FASTING 106 MG/DL (74-106); HDL CHOLESTEROL 37.3 MG/DL (>40); LDL CHOLESTEROL 118.5 MG/DL (<100); NON-HDL-C 168.7 MG/DL; POTASSIUM SERUM 4.7 MMOL/L (3.5-5.1); SODIUM LEVEL 141 MMOL/L (136-145); TOTAL PROTEIN 7.5 G/DL (5.7-8.2); TRIGLYCERIDES LEVEL 251 MG/DL (<150)
== END ==
LOC: M PLALAB 11:47
PROVIDERS: ATTEND Physician Assistant Medical
DX: E78.00 Pure hypercholesterolemia, unspecified (principal); E87.5 Hyperkalemia; R11.2 Nausea with vomiting, unspecified; R19.7 Diarrhea, unspecified; Z12.5 Encounter for screening for malignant neoplasm of prostate
CPT/HCPCS: 36415; 80053; 80061; 83690; 85025; 85652; 86140; G0103

== ENCOUNTER → 2023-11-28 | Outpatient (CLI) | payer MEDICARE, SELFPAY | LOC: M PLAIMG 11:05 | PROVIDERS: ATTEND Physician Assistant Medical | DX: R10.11 Right upper quadrant pain (principal) ==

== ENCOUNTER 2023-12-12 13:17 | Inpatient (IN) | payer MEDICARE ==
[2023-12-12 13:52] LABS: HEMATOCRIT 43.2 % (42.0-52.0); HEMOGLOBIN 14.3 g/dl (13.5-17.5); MEAN CORPUSCULAR HEMOGLOBIN 29.7 pg (27.0-33.0); MEAN CORPUSCULAR HGB CONC 33.1 g/dl (32.0-36.5); MEAN CORPUSCULAR VOLUME 89.6 fl (80.0-96.0); PLATELET COUNT, AUTOMATED 280 10^3/uL (150-450); RED BLOOD COUNT 4.82 10^6/uL (4.30-6.10)
[2023-12-12 14:14] LABS: ETHYL ALCOHOL (ETHANOL) < 0.003 % (0.000-0.010)
[2023-12-12 14:15] LABS: ALBUMIN 4.4 G/DL (3.2-5.2); ALKALINE PHOSPHATASE 112 U/L (46-116); ALT/SGPT 47 U/L (7.0-40); AST/SGOT 92 U/L (<34); BILIRUBIN,DIRECT 0.4 MG/DL (<0.4); BILIRUBIN,TOTAL 1.2 MG/DL (0.3-1.2); BLOOD UREA NITROGEN 32 MG/DL (9-23); CALCIUM LEVEL 9.9 MG/DL (8.3-10.6); CARBON DIOXIDE LEVEL 24 MMOL/L (20-31); CHLORIDE LEVEL 101 MMOL/L (98-107); CREATININE FOR GFR 1.18 MG/DL (0.70-1.30); GLOMERULAR FILTRATION RATE > 60.0 (>49); GLUCOSE, FASTING 155 MG/DL (74-106); POTASSIUM SERUM 4.1 MMOL/L (3.5-5.1); SALICYLATE LEVEL < 3.0 MG/DL (<30); SODIUM LEVEL 138 MMOL/L (136-145)
[2023-12-12 14:22] LABS: AMPHETAMINES LEVEL URINE NEGATIVE (NEGATIVE); BARBITURATES URINE NEGATIVE (NEGATIVE); BENZODIAZEPINES URINE NEGATIVE (NEGATIVE); COCAINE METABOLITE URINE NEGATIVE (NEGATIVE); METHADONE URINE NEGATIVE (NEGATIVE); OPIATES URINE NEGATIVE (NEGATIVE); PHENCYCLIDINE URINE NEGATIVE (NEGATIVE)
[2023-12-12 14:34] LABS: CANNABINOIDS URINE POSITIVE (NEGATIVE)
[2023-12-12] MEDS: LORazepam 1 MG TAB PO ONE (14:50)
[2023-12-12] MEDS ORDERED: RISP0.253 PO (19:24)
[2023-12-12] MEDS ORDERED: HOME MED LIST COMPLETE! XX SCH (19:25)
[2023-12-13] MEDS: HALOPERIDOL 5MG/ML 1ML VIAL IM ONE (22:24)
[2023-12-13] MEDS: diphenhydrAMINE 50MG/ML VIAL IM ONE (22:25)
[2023-12-13] MEDS: LORazepam 2 MG/ML 1ML VIAL IM ONE (22:25)
[2023-12-15] MEDS ORDERED: risperiDONE 0.5 MG TAB PO PRN (07:30)
[2023-12-15] MEDS ORDERED: traZODone 50 MG TAB PO PRN (12:10)
[2023-12-15] MEDS ORDERED: MAALOX 30 ML SUSP *UDC PO PRN (12:10)
[2023-12-15] MEDS ORDERED: MOM 30ML SUSPENSION UDC PO PRN (12:10)
[2023-12-15] MEDS ORDERED: OLANZapine ORAL DISINTEGRATING TAB 5MG PO PRN (12:10)
[2023-12-15] MEDS: LORazepam 2 MG TAB PO STA (15:29)
[2023-12-15] MEDS: diphenhydrAMINE 50MG CAP PO STA (15:29)
[2023-12-15] MEDS: ACETAMINOPHEN TAB 650MG DOSE (2X325MG) PO PRN (21:49)
[2023-12-16 06:24] VITALS: BP 130/82; TEMP 97.6; O2SAT 97
[2023-12-16] MEDS: risperiDONE 0.5 MG TAB PO SCH (12:47)
[2023-12-16 16:15] LABS: ALBUMIN 3.7 G/DL (3.2-5.2); ALKALINE PHOSPHATASE 94 U/L (46-116); ALT/SGPT 39 U/L (7.0-40); AST/SGOT 36 U/L (<34); BILIRUBIN,TOTAL 0.4 MG/DL (0.3-1.2); BLOOD UREA NITROGEN 18 MG/DL (9-23); CALCIUM LEVEL 9.3 MG/DL (8.3-10.6); CARBON DIOXIDE LEVEL 30 MMOL/L (20-31); CHLORIDE LEVEL 102 MMOL/L (98-107); CREATININE FOR GFR 0.96 MG/DL (0.70-1.30); GLOMERULAR FILTRATION RATE > 60.0 (>49); GLUCOSE, FASTING 96 MG/DL (74-106); POTASSIUM SERUM 4.4 MMOL/L (3.5-5.1); SODIUM LEVEL 137 MMOL/L (136-145); TOTAL PROTEIN 6.8 G/DL (5.7-8.2)
[2023-12-16 16:54] LABS: HEPATITIS C VIRUS ABY INDEX < 0.02 INDEX (<0.8)
[2023-12-16 16:55] LABS: HEPATITIS B CORE ANTIBODY IGM NEGATIVE (NEGATIVE)
[2023-12-16 17:40] VITALS: BP 152/74; TEMP 98.8; O2SAT 99
[2023-12-17] MEDS: LORazepam 1 MG TAB PO ONE (12:51)
[2023-12-17] MEDS: diphenhydrAMINE 25MG CAP PO ONE (12:52)
[2023-12-17 17:19] VITALS: BP 147/82; TEMP 99.6; O2SAT 98
[2023-12-18 06:30] VITALS: BP 178/82; TEMP 97.4; O2SAT 97
[2023-12-18 10:31] LABS: CHOLESTEROL RISK RATIO 4.39 (<5); LDL CHOLESTEROL 89.8 MG/DL (<100)
[2023-12-18 16:50] VITALS: BP 148/58; TEMP 98; O2SAT 97
[2023-12-18] MEDS: GABAPENTIN 400MG CAP PO SCH (17:55)
[2023-12-18] MEDS: ATORVASTATIN 20 MG TAB PO SCH (17:55)
[2023-12-19 06:16] VITALS: BP 138/68; TEMP 98.2; O2SAT 98
[2023-12-19] MEDS: risperiDONE 1 MG TAB PO SCH (10:37)
[2023-12-19] MEDS: diphenhydrAMINE 25MG CAP PO PRN (12:40)
[2023-12-19 16:32] VITALS: BP 126/60; TEMP 98.9; O2SAT 97
[2023-12-19] MEDS: DIVALPROEX 250MG *ER* TAB PO SCH (21:50)
[2023-12-20 06:59] LABS: ALBUMIN 3.7 G/DL (3.2-5.2); ALKALINE PHOSPHATASE 93 U/L (46-116); ALT/SGPT 27 U/L (7.0-40); AST/SGOT 15 U/L (<34); BILIRUBIN,TOTAL 0.3 MG/DL (0.3-1.2); BLOOD UREA NITROGEN 17 MG/DL (9-23); CARBON DIOXIDE LEVEL 24 MMOL/L (20-31); CHLORIDE LEVEL 106 MMOL/L (98-107); CREATININE FOR GFR 0.98 MG/DL (0.70-1.30); GLOMERULAR FILTRATION RATE > 60.0 (>49); GLUCOSE, FASTING 103 MG/DL (74-106); POTASSIUM SERUM 4.4 MMOL/L (3.5-5.1); SODIUM LEVEL 139 MMOL/L (136-145); TOTAL PROTEIN 6.9 G/DL (5.7-8.2)
[2023-12-20 14:28] VITALS: BP 150/62; TEMP 98.6; O2SAT 97
[2023-12-20 14:47] VITALS: BP 150/62; TEMP 98.6; O2SAT 97
[2023-12-21 06:24] VITALS: BP 148/68; TEMP 98.5; O2SAT 98
[2023-12-21 16:28] VITALS: BP 123/60; TEMP 98.3; O2SAT 98
[2023-12-21] MEDS: IBUPROFEN 400MG TAB PO PRN (17:02)
[2023-12-22 06:15] VITALS: BP 148/73; TEMP 97.9; O2SAT 98
[2023-12-22 17:24] VITALS: BP 138/64; TEMP 99; O2SAT 96
[2023-12-23 06:12] VITALS: BP 155/77; TEMP 97; O2SAT 96
[2023-12-23 17:10] VITALS: BP 141/66; TEMP 98.1; O2SAT 100
[2023-12-24 06:47] VITALS: BP 151/71; TEMP 97.6; O2SAT 100
[2023-12-24] MEDS ORDERED: RISP1TAB42 PO (08:38)
[2023-12-24] MEDS ORDERED: ATOR1TAB21 PO (08:38)
[2023-12-24] MEDS ORDERED: DEPA250T2 PO (08:38)
[2023-12-24] MEDS ORDERED: GABA-284 PO (08:38)
== END 2023-12-24 12:59 | disposition home or self-care (01) | DRG 885 ==
LOC: M ED 13:17 → M ED INP 12-15 12:09 → M PSY 12-15 17:11
PROVIDERS: ADMIT Student in an Organized Health Care Education/Training Program; ATTEND Student in an Organized Health Care Education/Training Program
DX: F29 Unspecified psychosis not due to a substance or known physiological condition (principal); R41.9 Unspecified symptoms and signs involving cognitive functions and awareness; Z91.018 Allergy to other foods; Z79.899 Other long term (current) drug therapy

== ENCOUNTER → 2023-12-26 | Outpatient (CLI) | payer MEDICARE ==
[~2023-12-26] MED LIST changes: +ATOR1TAB21 PO; +DEPA250T2 PO; +RISP0.253 PO; +RISP1TAB42 PO
[2023-12-26 12:25] LABS: BASO % 0.4 % (0.0-1.0); EOS # 0.2 10^3/uL (0.0-0.5); EOS % 2.2 % (0.0-3.0); HEMOGLOBIN 13.4 g/dl (13.5-17.5); LYMPH # 1.4 10^3/uL (1.5-5.0); LYMPH % 20.5 % (24.0-44.0); MEAN CORPUSCULAR HEMOGLOBIN 29.6 pg (27.0-33.0); MEAN CORPUSCULAR HGB CONC 31.9 g/dl (32.0-36.5); MEAN CORPUSCULAR VOLUME 92.7 fl (80.0-96.0); MONO # 0.4 10^3/uL (0.0-0.8); MONO % 6.5 % (2.0-8.0); NEUTROPHILS # 4.8 10^3/uL (1.5-8.5); NEUTROPHILS % 69.8 % (36.0-66.0); PLATELET COUNT, AUTOMATED 166 10^3/uL (150-450); RED BLOOD COUNT 4.53 10^6/uL (4.30-6.10); WHITE BLOOD COUNT 6.8 10^3/uL (4.0-10.0)
[2023-12-26 13:19] LABS: ALBUMIN 3.6 G/DL (3.2-5.2); ALKALINE PHOSPHATASE 85 U/L (46-116); ALT/SGPT 22 U/L (7.0-40); AST/SGOT 14 U/L (<34); BILIRUBIN,TOTAL 0.3 MG/DL (0.3-1.2); BLOOD UREA NITROGEN 16 MG/DL (9-23); CALCIUM LEVEL 9.2 MG/DL (8.3-10.6); CARBON DIOXIDE LEVEL 31 MMOL/L (20-31); CHLORIDE LEVEL 107 MMOL/L (98-107); CREATININE FOR GFR 0.91 MG/DL (0.70-1.30); GLOMERULAR FILTRATION RATE > 60.0 (>49); GLUCOSE, FASTING 96 MG/DL (74-106); POTASSIUM SERUM 5.1 MMOL/L (3.5-5.1); SODIUM LEVEL 143 MMOL/L (136-145); TOTAL PROTEIN 6.5 G/DL (5.7-8.2)
== END ==
LOC: M PLALAB 09:57
PROVIDERS: ATTEND Physician Assistant Medical
DX: M62.838 Other muscle spasm (principal); R41.0 Disorientation, unspecified

== ENCOUNTER → 2023-12-30 | Outpatient (CLI) | payer MEDICARE, SELFPAY | LOC: M PLALAB 11:08 | PROVIDERS: ATTEND Physician Assistant Medical | DX: R25.2 Cramp and spasm (principal) ==